=== PATIENT | male | born 1940 | race African-American/Black ===

== ENCOUNTER 2016-11-27 16:51 | Inpatient (IN) ==
[2016-11-27 17:56] LABS: Basophils # 0.1 K/mcL (0.0-0.2); Basophils % 0.8 %; Eosinophils # 0.2 K/mcL (0.0-0.6); Eosinophils % 2.9 %; Hematocrit 46.3 % (37.5-50.1); Hemoglobin 15.3 g/dL (12.9-16.9); Immature Granulocytes % 0.3 % (0-4); Lymphocytes % 30.2 %; Mean Corpuscular Hemoglobin 30.5 pg (28.0-33.3); Mean Corpuscular Volume 92.2 fL (83.0-100.0); Mean Platelet Volume 9.7 fL (9.4-12.4); Monocytes # 0.7 K/mcL (0.0-1.3); Monocytes % 10.5 %; Neutrophils # 3.7 K/mcL (1.6-8.9); Platelet Count 209 K/mcL (140-400); Red Blood Count 5.02 M/mcL (4.19-5.50); Red Cell Distribution Width 14.3 % (11.5-14.5); Segmented Neutrophils % 55.3 %
[2016-11-27 18:06] LABS: Calcium 9.4 mg/dL (8.6-10.8); Potassium 5.4 mEq/L (3.5-4.5)
[2016-11-27] MEDS ORDERED: Furosemide 40 MG/4 ML VIAL IVP ONE (20:50)
--- NOTE | 2016-11-27 23:59 | Emergency Department Note ---
Disposition Clinical Impression: CHF (congestive heart failure) Qualifiers: Congestive heart failure type: unspecified congestive heart failure type Congestive heart failure chronicity: unspecified congestive heart failure chronicity Qualified Code(s): I50.9 - Heart failure, unspecified Disposition: Admitted As Inpatient Condition: Good Referrals: Leon Ayon MD [Primary Care Provider] - General Adult HPI - General Chief complaint: ED Shortness of Breath/Dyspnea Stated complaint: VANDANA Time Seen by Provider: 11/27/16 20:13 Source: patient Limitations: no limitations Nursing Notes Reviewed: Yes Vital Signs Reviewed: Yes - History of Present Illness HPI Narrative: This is a 76-year-old male with a history of recent prostate surgery who presents with concern for dyspnea. He admits to orthopnea as well as dyspnea on exertion. He has rales on arrival and feels like his dyspnea worsens with movement. He does not a history of congestive heart failure. He is on Lasix. He admits that his urination has been not as powerful as normal. He has had decreased urinary output. He is taking his medications as prescribed. He does have a history of acute kidney injury. General: No acute distress HEENT: Pupils equal and reactive to light, extraoccular muscle movement is normal, TMS are clear bilaterally. Heart: RRR, No murmor rub or gallop Lungs: Rales bilaterally ABD: SNT, no focal areas or tenderness, no guarding or rebound tenderness. Extremities: No cyanosis, clubbing or edema Neuro: CN 2-12 in tact, no focal deficit. strength 5/5. Medical decision making 76-year-old male with history of heart failure presents with concern for dyspnea and orthopnea. He does have rales bilaterally. He has no hypoxia in the emergency department. His blood pressure is stable. He does have evidence of left bundle branch block on EKG. EKG shows left bundle branch block with ventricular rate of 79 bpm IN interval of 198 years duration of 141 QT of 394. There is evidence of left axis deviation. Additionally [address] segments are noted. This is a nonspecific EKG. One dose of IV Lasix 40 mg was provided. Chest x-ray is equivocal for pulmonary edema. Clinically he does have heart failure. Plan to admit for possible need for diuresis. Pain Scale: 0 - Related Data Home Medications Medication Instructions Recorded Confirmed Carvedilol [Coreg] 25 mg PO BID 08/12/15 11/27/16 Finasteride [Proscar] 5 mg PO DAILY 08/12/15 11/27/16 Furosemide [Lasix] 40 mg PO DAILY 08/12/15 11/27/16 Potassium Chloride [Klor-Con 10 meq PO BID 08/12/15 11/27/16 Sprinkle] Sacubitril/Valsartan [Entresto 24 1 each PO BID 11/08/16 11/27/16 mg-26 mg Tablet] Tramadol HCl [Ultram] 50 mg PO BID PRN 11/08/16 11/27/16 Mv-Mn/FA/Vit K/Lycop/Lut/Coq10 1 tab PO DAILY 11/21/16 11/27/16 [Daily Multivitamin Capsule] Aspirin Enteric Coated [Aspirin EC] 81 mg PO DAILY 11/27/16 11/27/16 Ergocalciferol (VITAMIN D2) 50,000 unit PO QWEEK 11/27/16 11/27/16 [Vitamin D2] Allergies Allergy/AdvReac Type Severity Reaction Status Date / Time cephalexin Allergy Hives Verified 11/21/16 09:25 All systems ED: reviewed and negative except as stated. Past Medical History - Past Medical History Medical history: Reports: cardiomyopathy, CHF, glaucoma, hypertension, other Surgical history: Reports: appendectomy, AICD Psychiatric history: Reports: no psych history - Social History Smoking Status: Never smoker Smokeless Tobacco Status: No Alcohol use: Reports: none Drug use: Reports: none Physical Exam - General Limitations: no limitations General appearance: alert, in no apparent distress Course Vital Signs Temperature 97.7 F 11/27/16 16:57 Pulse Rate 96 11/27/16 16:57 Respiratory Rate 18 11/27/16 16:57 Blood Pressure 130/75 11/27/16 16:57 O2 Sat by Pulse Oximetry 96 11/27/16 16:57 Temperature 97.7 F 11/27/16 16:57 Pulse Rate 77 11/27/16 23:25 Respiratory Rate 18 11/27/16 23:25 Blood Pressure 123/69 11/27/16 23:25 O2 Sat by Pulse Oximetry 96 11/27/16 23:25 Oxygen Delivery Oxygen Delivery Nasal Cannula Medical Decision Making - Lab Data Result diagrams: 11/27/16 17:47 11/27/16 17:47 Lab Results 11/27/16 11/27/16 11/27/16 Range/Units 17:47 17:47 17:47 WBC 6.7 (4.3-11.1) K/mcL RBC 5.02 (4.19-5.50) M/mcL Hgb 15.3 (12.9-16.9) g/dL Hct 46.3 (37.5-50.1) % MCV 92.2 (83.0-100.0) fL MCH 30.5 (28.0-33.3) pg MCHC 33.0 (31.6-35.5) g/dL RDW 14.3 (11.5-14.5) % Plt Count 209 (140-400) K/mcL MPV 9.7 (9.4-12.4) fL Immature Gran % 0.3 (0-4) % Seg Neutrophils % 55.3 % Lymphocytes % 30.2 % Monocytes % 10.5 % Eosinophils % 2.9 % Basophils % 0.8 % Neutrophils # 3.7 (1.6-8.9) K/mcL Lymphocytes # 2.0 (0.6-4.6) K/mcL Monocytes # 0.7 (0.0-1.3) K/mcL Eosinophils # 0.2 (0.0-0.6) K/mcL Basophils # 0.1 (0.0-0.2) K/mcL Sodium 137 (136-145) mEq/L Potassium 5.4 H (3.5-4.5) mEq/L Chloride 105 (98-109) mEq/L Carbon Dioxide 25 (19-29) mEq/L BUN 13 (8-26) mg/dL Creatinine 1.68 H (0.72-1.25) mg/dL Est GFR ( Amer) 49 L (> 60) Est GFR (Non-Af Amer) 40 L (> 60) BUN/Creatinine Ratio 8 (6-26) Glucose 135 H (70-99) mg/dL Calculated Osmolality 286 (280-300) Lactic Acid 1.6 (0.5-2.2) mmol/L Calcium 9.4 (8.6-10.8) mg/dL Troponin I (0-0.03) ng/mL B-Natriuretic Peptide (0-100) pg/mL 11/27/16 11/27/16 Range/Units 17:47 17:47 WBC (4.3-11.1) K/mcL RBC (4.19-5.50) M/mcL Hgb (12.9-16.9) g/dL Hct (37.5-50.1) % MCV (83.0-100.0) fL MCH (28.0-33.3) pg MCHC (31.6-35.5) g/dL RDW (11.5-14.5) % Plt Count (140-400) K/mcL MPV (9.4-12.4) fL Immature Gran % (0-4) % Seg Neutrophils % % Lymphocytes % % Monocytes % % Eosinophils % % Basophils % % Neutrophils # (1.6-8.9) K/mcL Lymphocytes # (0.6-4.6) K/mcL Monocytes # (0.0-1.3) K/mcL Eosinophils # (0.0-0.6) K/mcL Basophils # (0.0-0.2) K/mcL Sodium (136-145) mEq/L Potassium (3.5-4.5) mEq/L Chloride (98-109) mEq/L Carbon Dioxide (19-29) mEq/L BUN (8-26) mg/dL Creatinine (0.72-1.25) mg/dL Est GFR ( Amer) (> 60) Est GFR (Non-Af Amer) (> 60) BUN/Creatinine Ratio (6-26) Glucose (70-99) mg/dL Calculated Osmolality (280-300) Lactic Acid (0.5-2.2) mmol/L Calcium (8.6-10.8) mg/dL Troponin I 0.00 (0-0.03) ng/mL B-Natriuretic Peptide 1083 H (0-100) pg/mL
[2016-11-28] MEDS ORDERED: MOM Conc 10 ML UD.LIQ PO PRN (01:36)
[2016-11-28] MEDS ORDERED: *HR* HYDROcodone/Acet 5/325 mg TABLET PO PRN (01:36)
[2016-11-28] MEDS ORDERED: Naloxone 0.4 MG/ML INJ IVP PRN (01:36)
[2016-11-28] MEDS ORDERED: Ondansetron 4 MG/2 ML VIAL IVP PRN (01:36)
[2016-11-28] MEDS ORDERED: *HR* Morphine 2 MG/ML SYRINGE IVP PRN (01:36)
[2016-11-28] MEDS ORDERED: *HR* Promethazine 25 MG/ML VIAL IVP PRN (01:36)
[2016-11-28] MEDS ORDERED: Acetaminophen 325 MG TABLET PO PRN ×2 (01:36→15:48)
[2016-11-28] MEDS ORDERED: traMADol 50 MG TABLET PO PRN (01:40)
--- NOTE | 2016-11-28 03:50 | Internal Med History&Physical ---
Date of Encounter: 11/28/16 Time of Encounter: 01:45 Assessment and Plan (1) Acute systolic (congestive) heart failure Current visit: Yes Status: Acute Will admit the pt into Tele Reviewed his Cardiac cath from 11/05 showed mild triple vessel CAD, LVEF 10-15% Started him on IV Lasix 40mg BID Reviewed EKG will place him on Tele check serial troponin cont Coreg + Entresto Cont ASA Will consult Cardiology in AM - Since pt mentioned he does have issues with AICD , supposedly he scheduled to see Dr. King this week (2) Ischemic cardiomyopathy Current visit: Yes Status: Acute s/p AICD cont close monitoring (3) CKD (chronic kidney disease) stage 3, GFR 30-59 ml/min Current visit: Yes Status: Acute stable Cr avoid nephrotoxic meds (4) HTN (hypertension) Current visit: Yes Status: Acute stable BP cont home meds Qualifiers: Qualified Code(s): I10 - Essential (primary) hypertension (5) BPH (benign prostatic hyperplasia) Current visit: Yes Status: Acute recent urology procedure cont close monitoring since pt still c/o urinary retention will get bladder scan Qualifiers: Qualified Code(s): N40.1 - Benign prostatic hyperplasia with lower urinary tract symptoms; R39.16 - Straining to void; R39.16 - Straining to void (6) DVT prophylaxis Current visit: Yes Status: Acute on SQ Heparin Internal Medicine - H&P: HPI Chief complaint: Shortness of breath Admitted From: Emergency Dept Plans for Post Hospital Care: Home History of present illness: Mr. 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 He admits to orthopnea as well as dyspnea on exertion. He denied any CP.He also c/o still unable to void completely. Past Med Surg Social Fam HX - Past Medical History Medical history: cardiomyopathy, CHF, glaucoma, hypertension, other Psychiatric history: no psych history - Past Surgical History Surgical History: appendectomy, AICD - Social History Smoking Status: Never smoker Smokeless Tobacco Status: No Alcohol use: none Drug use: none - Family History Mother Cause of : Heart failure Internal Medicine - H&P: Meds Carvedilol [Coreg] 25 mg PO BID 08/12/15 [History] Finasteride [Proscar] 5 mg PO DAILY 08/12/15 [History] Furosemide [Lasix] 40 mg PO DAILY 08/12/15 [History] Potassium Chloride [Klor-Con Sprinkle] 10 meq PO BID 08/12/15 [History] Sacubitril/Valsartan [Entresto 24 mg-26 mg Tablet] 1 each PO BID 11/08/16 [ History] Tramadol HCl [Ultram] 50 mg PO BID PRN 11/08/16 [History] Mv-Mn/FA/Vit K/Lycop/Lut/Coq10 [Daily Multivitamin Capsule] 1 tab PO DAILY 11/21 [History] Aspirin Enteric Coated [Aspirin EC] 81 mg PO DAILY 11/27/16 [History] Ergocalciferol (VITAMIN D2) [Vitamin D2] 50,000 unit PO QWEEK 11/27/16 [History] 3 Allergy/AdvReac Type Severity Reaction Status Date / Time cephalexin Allergy Hives Verified 11/21/16 09:25 All Systems PM: A 10-system review of systems was performed and is negative for pertinent findings except as documented above in the HPI. Review of systems: All the systems are reviewed everything is benign except the systems and symptoms I mentioned in the history of present illness - Constitutional Vitals: Temp Pulse Resp BP Pulse Ox 97.6 F 88 18 123/78 98 11/28/16 00:31 11/28/16 00:31 11/28/16 00:31 11/28/16 00:31 11/28/16 00:31 General appearance: Present: A&O X 3, no acute distress, answers questions appropriately - Head Head exam: Present: atraumatic, normal inspection - Neck Neck exam general surgery: Present: supple - Respiratory Respiratory exam: Present: decreased breath sounds, rales (mild), wheezes (mild) . Absent: respiratory distress, rhonchi - Cardiovascular Cardiovascular exam: Present: gallop, RRR, +S1, +S2. Absent: systolic murmur - GI/Abdominal GI/Abdominal exam: Present: normal bowel sounds, soft. Absent: distended, rebound, rigid, tenderness - Extremities Exam Extremities exam: Present: pedal edema. Absent: calf tenderness, tenderness - Back Exam Back exam: Absent: CVA tenderness (L), CVA tenderness (R) - Neurological Exam Neurological exam: Present: alert, oriented X3 - Psychiatric Psychiatric exam: Present: normal affect, normal mood - Skin Skin exam: Present: intact. Absent: rash Internal Med - H&P Results - Labs CBC & Chem 7: 11/27/16 17:47 11/27/16 17:47
[2016-11-28 05:37] LABS: Basophils # 0.1 K/mcL (0.0-0.2); Basophils % 0.6 %; Eosinophils # 0.2 K/mcL (0.0-0.6); Eosinophils % 2.1 %; Hematocrit 43.6 % (37.5-50.1); Hemoglobin 14.7 g/dL (12.9-16.9); Immature Granulocytes % 0.2 % (0-4); Lymphocytes # 3.3 K/mcL (0.6-4.6); Lymphocytes % 34.6 %; Mean Corpuscular HGB Conc 33.7 g/dL (31.6-35.5); Mean Corpuscular Hemoglobin 30.6 pg (28.0-33.3); Mean Corpuscular Volume 90.8 fL (83.0-100.0); Mean Platelet Volume 10.5 fL (9.4-12.4); Monocytes # 1.1 K/mcL (0.0-1.3); Monocytes % 11.5 %; Neutrophils # 4.8 K/mcL (1.6-8.9); Platelet Count 200 K/mcL (140-400); Red Cell Distribution Width 14.1 % (11.5-14.5)
[2016-11-28 05:51] LABS: Chol/HDL Ratio 4.5 (0-4.9); Magnesium 1.9 mg/dL (1.6-2.6)
[2016-11-28 05:52] LABS: Potassium 3.7 mEq/L (3.5-4.5)
[2016-11-28] MEDS: *HR* Heparin 5,000 UNIT/ML VIAL SQ SCH ×2 (06:11→16:23)
--- NOTE | 2016-11-28 08:03 | Event Note ---
Date of Encounter: 11/28/16
[2016-11-28] MEDS ORDERED: SACUBITRIL/VALSARTAN 24/26 MG TABLET PO SCH (09:00)
--- NOTE | 2016-11-28 09:51 | Event Note ---
<Compa Murray - Last Filed: 11/28/16 13:01> Date of Encounter: 11/28/16 Time of Encounter: 13:01 I examined this patient and my medical decision-making was reviewed with the Resident Physician. I agree with the documented findings, disposition and treatment plan as described except to the extent set forth below. <Trenton Moseley - Last Filed: 11/28/16 14:45> Date of Encounter: 11/28/16 Patient reports worsening sob for the past week with acute worsening yesterday. After arrival at ER patient was found ot have b/l basilar rales. BNP was elevated. Patient was started on lasix IV for diuresis. He has hx of non-ischemic cardiomyopathy with LVEF of 15%. This morning patients states his sob has improved. He denies lightheadedness, CP ,palpitations, abdominal pain, nausea LE swelling, LE pain. General: pleaseant male without distress Heart: Regular rate and rhythm with no murmur Lungs: minor bibaslar rales Abdomen: Soft nontender, nondistended positive bowel sounds Skin: warm and dry Extremities: Absent pedal edema, Neuro: alert and oriented x3 Vascular: Pedal and radial pulses 2 out of 4 Acute on chronic systolic heart failure: Echo shows LVEF 15%. s/p ICD. Continue IV diuresis. Strict I/Os. Continue entresto. Coronary artery disease: [facility] 10/2016 showed non-obstructive CAD. Continue aspirin and statin beta isabel DVT prophylaxis: heparin SQ
--- NOTE | 2016-11-28 09:56 | Cardiology Consult Note ---
<Mirza Thakur - Last Filed: 11/28/16 09:47> Date of Encounter: 11/28/16 Time of Encounter: 09:00 Assessment and Plan (1) Acute systolic (congestive) heart failure Current Visit: Yes Status: Acute Known severe non-ischemic cardiomyoapthy and severe MR. Presents with acute on chronic CHF. TTE 10/2016- Severe LV enlargement with severe global LV dysfunction. EF 10-15% Mild RV dysfunction. Severe MR due to tethering of MV leaflets and incomplete coaptation.Moderate AI. Moderately severe TR. Severe pulmonary hypertension.Device leads present in R heart chambers. BNP 1214. No previous BNP to compare. CXR - no acute process. Given IV lasix with improvement. No significant I&O documented. He is down 3 KG since admission. Taking lasix 40 mg daily at home with PRN extra 40 mg with edema. Kidney function is stable. Continue IV lasix for at least 24 more hours. Strict I&O and daily weights. Scheduled for BiV IVC upgrade 12/07/16 for NYHA class III symptoms. Continue Entresto and carvedilol. I will discuss increasing entresto with Dr. Estrada. He is currently on starting dose. (2) HTN (hypertension) Current Visit: Yes Status: Acute B/p acceptable. Qualifiers: Hypertension type: essential hypertension Qualified Code(s): I10 - Essential (primary) hypertension (3) CAD (coronary artery disease) Current Visit: Yes Status: Acute [facility] 10/2016 showed mild non-obstructive CAD. There was a 50% stenosis in the pLCX artery. Minimal disease otherwise. Continue asa, statin, and bb. Qualifiers: Coronary Disease-Associated Artery/Lesion type: [place] artery [place] vs. transplanted heart: [place] heart Associated angina: without angina Qualified Code(s): I25.10 - Atherosclerotic heart disease of [place] coronary artery without angina pectoris Discussion w patient/family: The assessment and plan as outlined above was discussed with the patient and/or family members who expressed understanding and agreement. All questions were answered. Thank you for involving us in the care of your patient. Please call with any questions. History of Present Illness Consult date: 11/28/16 Requesting physician: Georgi Fregoso Consult reason: Acute CHF Chief complaint: Dyspnea History of present illness: Mr. Russo is a 76 year old male with a history on non-ischemic cardiomyopathy , CHF, severe mitral regurgitation, pulmonary hypertension, mild non- obstructive CAD on [facility] 10/2016, and BPH s/p recent TURP who presents with SOB for 24 hours. states that SOB occurs at rest and increased with activity. Denies weight gain, edema, or orthopnea. He presented to the hospital and was given IV lasix. He reports his symptoms have improved. He continues to have intermittent SOB. He is scheduled for ICD upgrade to bi-v ICD 12/07/[address] Kenn King. Echocardiogram recently ordered when his ICD battery was found to be depleted. His EF was found to be decreased at 10-15% from 30-35%. He underwent [facility] to evaluate for ischemic cause of reduced EF. He was found to have mild non- obstructive CAD. Past Med Surg Social Fam HX - Past Medical History Medical history: cardiomyopathy, CHF, coronary artery disease, glaucoma, hypertension, other Psychiatric history: no psych history - Past Surgical History Surgical History: appendectomy, AICD - Social History Smoking Status: Never smoker Smokeless Tobacco Status: No Alcohol use: none Drug use: none - Family History Mother Cause of : Heart failure Medications and Allergies Carvedilol [Coreg] 25 mg PO BID 08/12/15 [History] Finasteride [Proscar] 5 mg PO DAILY 08/12/15 [History] Furosemide [Lasix] 40 - 80 mg PO DAILY PRN 08/12/15 [History] Potassium Chloride [Klor-Con Sprinkle] 10 meq PO BID 08/12/15 [History] Sacubitril/Valsartan [Entresto 24 mg-26 mg Tablet] 1 each PO BID 11/08/16 [ History] Mv-Mn/FA/Vit K/Lycop/Lut/Coq10 [Daily Multivitamin Capsule] 1 tab PO DAILY 11/21 [History] Aspirin Enteric Coated [Aspirin EC] 81 mg PO DAILY 11/27/16 [History] Ergocalciferol (VITAMIN D2) [Vitamin D2] 50,000 unit PO QWEEK 11/27/16 [History] Lisinopril [Lisinopril] 2.5 mg PO BID 11/28/16 [History] 3 Allergy/AdvReac Type Severity Reaction Status Date / Time cephalexin Allergy Hives Verified 11/21/16 09:25 All Systems Review: A 10-system review of systems was performed and is negative for pertinent findings except as documented above in the HPI. Physical Examination Vital Signs, Last 4 Hours Temp Pulse Resp BP Pulse Ox 11/28/16 07:59 97.9 F 83 16 110/66 98 General: Conversant, No Apparent Distress HEENT: Atraumatic, Normocephaly, Mucus Membranes Moist Neck: No JVD, Normal carotid pulses Cardiac: Reg Rate and Rhythm, Normal S1 and S2, No Murmur Lungs: Normal Breath Sounds, No Wheeze, Rales, Rhonchi Neuro: Alert and responsive, No focal deficits noted Abdomen: Soft, Non-Tender Skin: No rashes noted on visualized skin Musculoskeletal: No Chest Wall Tenderness Extremities: No Clubbing, No Cyanosis, No Edema, Normal Pulses Results 11/28/16 03:58 11/28/16 03:58 Lab Results 11/28/16 11/28/16 11/28/16 03:58 03:58 03:58 WBC 9.4 Hgb 14.7 Hct 43.6 Plt Count 200 Sodium 139 Potassium 3.7 D Chloride 106 Carbon Dioxide 23 BUN 14 Creatinine 1.52 H Glucose 101 H Calcium 9.0 Magnesium 1.9 Troponin I 0.02 B-Natriuretic Peptide 11/28/16 03:58 WBC Hgb Hct Plt Count Sodium Potassium Chloride Carbon Dioxide BUN Creatinine Glucose Calcium Magnesium Troponin I B-Natriuretic Peptide 1214 H - Imaging and Cardiology Echo: report reviewed (Severe LV enlargement with severe global LV dysfunction. EF 10-15% Mild RV dysfunction. Severe MR due to tethering of MV leaflets and incomplete coaptation. Moderate AI. Moderately severe TR. Severe pulmonary hypertension. Device leads present in R heart chambers.) Consult Discharge Plan - Plan Referrals: Leon Ayon MD [Primary Care Provider] - 12/07/16 1:20 pm <Kay Estrada - Last Filed: 11/28/16 14:51> Date of Encounter: 11/28/16 - Attending Attestation I have personally performed a face to face evaluation on this patient. I have reviewed and agree with the care plan. History and Exam by me shows: EXAM: Alert, orientedx3 and conversant Mucus membranes moist No apparent JVD, no carotid bruit RRR, normal S1/S2, no murmur Normal breath sounds Abdomen soft, nontender, nondistended, normal bowel sounds No focal deficits No LE edema IMPRESSION: 1. Acute systolic heart failure: Known severe NICM presents with symptoms concerning for heart failure. Given IV lasix with noted improvement in symptoms and decrease in weight. Continue with IV diuresis. Will re-evaluate tomorrow. Scheduled for BiV ICD 12/07/16 - will continue to plan for outpatient procedure. Continue coreg and entresto. Assessment and Plan Discussion w patient/family: The assessment and plan as outlined above was discussed with the patient and/or family members who expressed understanding and agreement. All questions were answered. Thank you for involving us in the care of your patient. Please call with any questions. History of Present Illness History of present illness: Mr. Russo is a 76 year old male All Systems Review: A 10-system review of systems was performed and is negative for pertinent findings except as documented above in the HPI. Physical Examination Vital Signs, Last 4 Hours Temp Pulse Resp BP Pulse Ox 11/28/16 11:29 98.2 F 83 16 117/70 96 Results 11/28/16 03:58 11/28/16 03:58 Lab Results 11/28/16 11/28/16 11/28/16 03:58 03:58 03:58 WBC 9.4 Hgb 14.7 Hct 43.6 Plt Count 200 Sodium 139 Potassium 3.7 D Chloride 106 Carbon Dioxide 23 BUN 14 Creatinine 1.52 H Glucose 101 H Calcium 9.0 Magnesium 1.9 Troponin I 0.02 B-Natriuretic Peptide 11/28/16 11/28/16 03:58 10:15 WBC Hgb Hct Plt Count Sodium Potassium Chloride Carbon Dioxide BUN Creatinine Glucose Calcium Magnesium Troponin I 0.02 B-Natriuretic Peptide 1214 H
[2016-11-28] MEDS: Multivit/Ca/Min/Fe/FA 1 TAB TABLET PO SCH (11:44)
[2016-11-28] MEDS: Finasteride 5 MG TABLET PO SCH (11:44)
[2016-11-28] MEDS: Furosemide 40 MG/4 ML VIAL IVP SCH ×2 (11:44→16:23)
[2016-11-28] MEDS: Aspirin Enteric Coated 81 MG Tablet PO SCH (11:45)
--- NOTE | 2016-11-28 14:49 | Event Note ---
Date of Encounter: 11/28/16 Time of Encounter: 14:30 - Cardiology Event Note Discussed and reviewed with Dr. Kenn King and Dr. Estrada, recs to proceed with BiVICD upgrade as planned as an outpatient. Primary service aware.
--- NOTE | 2016-11-28 16:48 | Electrocardiograph Report ---
[place] [id number] Test Date: 2016-11-27 Pat Name: Mookie Russo Department: 102 Room: 2NE22 Gender: M Admissions Specialist: : [id number] Requested By: Lino Lozada Order Number: [id number] Reading MD: Mary King Measurements Intervals [place] Rate: 79 P: 45 NE: 198 QRS: -36 QRSD: 141 T: 105 QT: 394 QTc: 429 Interpretive Statements SINUS RHYTHM MARKED LEFT AXIS DEVIATION [QRS AXIS < -30] LEFT BUNDLE BRANCH BLOCK [120+ ms QRS DURATION, 80+ ms Q/S IN V1/V2, 85+ ms R IN I/aVL/V5/V6] Electronically Signed On 11-28-2016 16:47:04 EDT by Mary King
[2016-11-28] MEDS: SACUBITRIL/VALSARTAN 49/51 MG TABLET PO SCH (23:04)
[2016-11-29 05:01] LABS: Calcium 9.3 mg/dL (8.6-10.8); Potassium 4.1 mEq/L (3.5-4.5)
[2016-11-29] MEDS: *HR* Heparin 5,000 UNIT/ML VIAL SQ SCH (05:22)
--- NOTE | 2016-11-29 06:22 | Discharge Summary ---
<Trenton Moseley - Last Filed: 11/29/16 09:49> Date of Encounter: 11/29/16 Time of Encounter: 08:40 - Discharge Diagnosis (1) Acute systolic (congestive) heart failure Priority: Primary Status: Acute (2) Ischemic cardiomyopathy Priority: Secondary Status: Acute (3) CKD (chronic kidney disease) stage 3, GFR 30-59 ml/min Priority: Secondary Status: Acute (4) HTN (hypertension) Priority: Secondary Status: Acute Qualifiers: Hypertension type: essential hypertension Qualified Code(s): I10 - Essential (primary) hypertension (5) CAD (coronary artery disease) Priority: Secondary Status: Acute Qualifiers: Coronary Disease-Associated Artery/Lesion type: [place] artery [place] vs. transplanted heart: [place] heart Associated angina: without angina Qualified Code(s): I25.10 - Atherosclerotic heart disease of [place] coronary artery without angina pectoris (6) DVT prophylaxis Priority: Secondary Status: Acute - Discharge Medications Prescriptions: Sacubitril/Valsartan 49/51 mg [Entresto 49 mg-51 mg Tablet] 1 tab PO BID #60 tablet Home Medications: Carvedilol [Coreg] 25 mg PO BID 08/12/15 [History] Finasteride [Proscar] 5 mg PO DAILY 08/12/15 [History] Furosemide [Lasix] 40 - 80 mg PO DAILY PRN 08/12/15 [History] Potassium Chloride [Klor-Con Sprinkle] 10 meq PO BID 08/12/15 [History] Mv-Mn/FA/Vit K/Lycop/Lut/Coq10 [Daily Multivitamin Capsule] 1 tab PO DAILY 11/21 [History] Aspirin Enteric Coated [Aspirin EC] 81 mg PO DAILY 11/27/16 [History] Ergocalciferol (VITAMIN D2) [Vitamin D2] 50,000 unit PO QWEEK 11/27/16 [History] PrednisoLONE Acetate 1% Opth [PredFORTE 1%] 1 drop LEFT EYE DAILY 11/28/16 [ History] Sacubitril/Valsartan 49/51 mg [Entresto 49 mg-51 mg Tablet] 1 tab PO BID #60 tablet 11/29/16 [Rx] Allergies/Adverse Reactions: 3 Allergy/AdvReac Type Severity Reaction Status Date / Time cephalexin Allergy Hives Verified 11/21/16 09:25 Date of admission: 11/28/16 01:36 Primary care physician: Leon Ayon MD Consults: 11/28/16 06:37 Consult to Cardiology [CONS] Routine Comment: Consulting Provider: Cardiology Sonya Reason for Consult: acute CHF exacerbation Call Completed: Yes Discharging clinician: Trenton Moseley Anticipated date of discharge: 11/29/16 - Patient Status Disposition: Home, Self-Care Condition: Good Functional capacity at discharge: independent ambulation Overall status at discharge: patient is progressing back to baseline - Discharge Instructions Instructions: Heart Failure (DC) Follow Up With: Leon Ayon MD [Primary Care Provider] - 12/14/16 1:20 pm Kenn King MD [Partnered Physician] - 12/05/16 (KEEP APPT W/ DR. DRISCOLL ) Additional Instructions: Follow up with PCP and cardiology outaptient Please follow low salt and fluid restricted diet of 1500cc. Cardiology has increased your Entresto medication dosage. Please orange picker new prescription at your pharmacy. - Diet and Activity Activity: as per physical therapy, increase activity as tolerated Diet: low fat, low cholesterol, low salt diet, other (fluid restriction of 1500cc) Hospital course: Mr. Russo is a 76 year old male presents with cc of acute on set sob with hypoxia. Had b/l rales on lung exam and elevated BNP. Ptient required 2L O2 supplementation. Patient found to have acute on chronic systolic HF. He was started on lasix for diuresis. Patient echocardiogram has EF of 15%. 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 Patient had recent TURP procedure as well on 11/22/16 due to BPH and urinary retention which my have contributed to his fluid overload and acute heart failure. Patient was diured overnight and sob improved. This morning he is not requiring O2. He was ambulating independently without dyspnea and tolerating his diet. Patient's entresto dose was increased by cardiology. He was educated on low salt, fluid restricted diet. Patient will follow up outpatient with cardiology and pcp. Patient will get an BiV ICD upgrade on 12/07/16 outpatient as was scheduled before admission by cardiology. - Time Spent with Patient Total time spent providing and/or coordinating discharge services: - Constitutional Vitals: Temp Pulse Resp BP Pulse Ox 97.7 F 83 19 115/67 96 11/29/16 04:56 11/29/16 04:56 11/29/16 04:56 11/29/16 04:56 11/29/16 04:56 General appearance: Present: A&O X 3, no acute distress, answers questions appropriately - Head Head exam: Present: atraumatic, normocephalic - Eye Eye exam: Present: PERRL, conjuntiva pink, sclera anicteric - Neck Neck exam general surgery: Present: supple, trachea midline - Respiratory Respiratory exam: Present: CTAB. Absent: accessory muscle use, rales, rhonchi, wheezes - Cardiovascular Cardiovascular exam: Present: RRR, +S1, +S2. Absent: diastolic murmur, gallop, rubs, systolic murmur - GI/Abdominal GI/Abdominal exam: Present: normal bowel sounds, soft. Absent: distended, tenderness - Extremities Exam Extremities exam: Present: warm, radial pulses palpable and symmetrical. Absent : calf tenderness, cyanotic, pedal edema - Neurological Exam Neurological exam: Present: alert, oriented X3. Absent: facial droop, speech deficit - Skin Skin exam: Present: dry, intact <Terri,Compa P - Last Filed: 11/29/16 19:01> Date of Encounter: 11/29/16 Date of admission: 11/28/16 01:36 Primary care physician: Leon Ayon MD Consults: 11/28/16 06:37 Consult to Cardiology [CONS] Routine Comment: Consulting Provider: Cardiology [place] Reason for Consult: acute CHF exacerbation Call Completed: Yes Hospital course: Mr. Russo is a 76 year old male - Time Spent with Patient Total time spent providing and/or coordinating discharge services: - Constitutional Vitals: Temp Pulse Resp BP Pulse Ox 97.8 F 68 16 106/69 98 11/29/16 07:02 11/29/16 07:02 11/29/16 07:02 11/29/16 07:02 11/29/16 07:02 - Attending Attestation I examined this patient and my medical decision-making was reviewed with the Resident Physician. I agree with the documented findings, disposition and treatment plan as described except to the extent set forth below.
[2016-11-29 07:05] VITALS: BP 106/69
[2016-11-29] MEDS ORDERED: Furosemide 40 MG TABLET PO SCH (09:00)
[2016-11-29] MEDS: SACUBITRIL/VALSARTAN 49/51 MG TABLET PO SCH (09:20)
[2016-11-29] MEDS: Aspirin Enteric Coated 81 MG Tablet PO SCH (09:20)
[2016-11-29] MEDS: Finasteride 5 MG TABLET PO SCH (09:20)
[2016-11-29] MEDS: Multivit/Ca/Min/Fe/FA 1 TAB TABLET PO SCH (09:20)
--- NOTE | 2016-11-29 09:32 | Cardiology Progress Note ---
Date of Encounter: 11/29/16 Time of Encounter: 09:28 Assessment and Plan (1) Acute systolic (congestive) heart failure Current Visit: Yes Status: Acute Known severe non-ischemic cardiomyoapthy and severe MR. Presents with acute on chronic CHF. TTE 10/2016- Severe LV enlargement with severe global LV dysfunction. EF 10-15% Mild RV dysfunction. Severe MR due to tethering of MV leaflets and incomplete coaptation.Moderate AI. Moderately severe TR. Severe pulmonary hypertension.Device leads present in R heart chambers. [facility] 10/2016- C showed mild-moderate non-obstructive CAD. BNP 1214. No previous BNP to compare. CXR - no acute process. Given IV lasix with improvement. Net negative 2L. He is down 3 KG since admission. Taking lasix 40 mg daily at home with PRN extra 40 mg with edema. Continue home dose of lasix. Admits to high sodium intake. Low sodium diet reviewed and patient agrees to decrease sodium intake. Mild increase in creatinine. Continue IV lasix for at least 24 more hours. Strict I&O and daily weights. Scheduled for BiV IVC upgrade 12/07/16 for NYHA class III symptoms. Continue Entresto and carvedilol. Entresto increased yesterday. Increase in creatinine, may be secondary to diuretic. Decrease back to original dose and re- evaluate in out pt setting. Cardiology signing off. Call with questions. Out-pt f/u will be made in 1-2 weeks for CHF f/u. (2) HTN (hypertension) Current Visit: Yes Status: Acute B/p acceptable. Qualifiers: Hypertension type: essential hypertension Qualified Code(s): I10 - Essential (primary) hypertension (3) CAD (coronary artery disease) Current Visit: Yes Status: Acute [facility] 10/2016 showed mild non-obstructive CAD. There was a 50% stenosis in the pLCX artery. Minimal disease otherwise. Continue asa, statin, and bb. Qualifiers: Coronary Disease-Associated Artery/Lesion type: [place] artery [place] vs. transplanted heart: [place] heart Associated angina: without angina Qualified Code(s): I25.10 - Atherosclerotic heart disease of [place] coronary artery without angina pectoris Discussion w patient/family: The assessment and plan as outlined above was discussed with the patient and/or family members who expressed understanding and agreement. All questions were answered. Thank you for involving us in the care of your patient. Please call with any questions. Subjective Principal diagnosis: CHF Interval history: mr. Russo is resting in bed comfortably. Denies recurrent dyspnea. Objective Vital Signs, Last 4 Hours Temp Pulse Resp BP Pulse Ox 11/29/16 07:02 97.8 F 68 16 106/69 98 General: Conversant, No Apparent Distress HEENT: Atraumatic, Normocephaly, Mucus Membranes Moist Neck: No JVD, Normal carotid pulses Cardiac: Reg Rate and Rhythm, Normal S1 and S2, No Murmur Lungs: Normal Breath Sounds, No Wheeze, Rales, Rhonchi Neuro: Alert and responsive, No focal deficits noted Abdomen: Soft, Non-Tender Skin: No rashes noted on visualized skin Musculoskeletal: No Chest Wall Tenderness Extremities: No Clubbing, No Cyanosis, No Edema, Normal Pulses Results 11/28/16 03:58 11/29/16 04:25 Lab Results 11/28/16 11/29/16 10:15 04:25 Sodium 141 Potassium 4.1 Chloride 104 Carbon Dioxide 29 BUN 18 Creatinine 1.71 H Glucose 129 H Calcium 9.3 Troponin I 0.02 Consult Discharge Plan - Plan Additional Instructions: Follow up with PCP and cardiology outaptient Please follow low salt and fluid restricted diet of 1500cc. Cardiology has increased your Entresto medication dosage. 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 Referrals: Leon Ayon MD [Primary Care Provider] - 12/07/16 1:20 pm Prescriptions: Sacubitril/Valsartan 49/51 mg [Entresto 49 mg-51 mg Tablet] 1 tab PO BID #60 tablet
[2016-11-29] MEDS ORDERED: FLUARIX QUAD 2017-18 36MOS UP/PF 0.5 ML SYRINGE IM ONE (10:37)
[2016-11-29] MEDS ORDERED: SACUBITRIL/VALSARTAN 24/26 MG TABLET PO SCH (21:00)
== END 2016-11-29 11:25 | disposition home or self-care (01) | DRG 291 ==
LOC: 2NENU 16:51 → EMEROO 16:51 → 2NENU 11-28 00:18 → SUATTDRO 11-28 01:36
PROVIDERS: ADMIT Family Medicine; ATTEND Internal Medicine

== ENCOUNTER 2018-01-22 13:39 | Observation (INO) ==
--- NOTE | 2018-01-22 14:17 | Emergency Department Note ---
Disposition Clinical Impression: CHF (congestive heart failure) Qualifiers: Heart failure type: unspecified Heart failure chronicity: acute on chronic Qualified Code(s): I50.9 - Heart failure, unspecified Disposition: Admitted As Inpatient Condition: Good Referrals: Leon Ayon MD [Primary Care Provider] - Forms: ED Satisfaction Letter Time of Disposition: 16:34 General Adult HPI - General Chief complaint: ED Shortness of Breath/Dyspnea Stated complaint: VANDANA Time Seen by Provider: 01/22/18 13:52 Source: patient Limitations: no limitations - History of Present Illness HPI Narrative: This is a 77-year-old male who comes to emergency department because of shortness of breath. He states it has been worsening over the last 2 weeks. He states that he becomes especially short of breath when he lies down to sleep. He also reports increased dyspnea on exertion. Pain Scale: 1 - Related Data Home Medications Medication Instructions Recorded Confirmed Carvedilol [Coreg] 25 mg PO BID 08/12/15 12/07/16 Finasteride [Proscar] 5 mg PO DAILY 08/12/15 12/07/16 Furosemide [Lasix] 40 - 80 mg PO DAILY PRN 08/12/15 12/07/16 Potassium Chloride [Klor-Con 10 meq PO BID 08/12/15 12/07/16 Sprinkle] Mv-Mn/FA/Vit K/Lycop/Lut/Coq10 1 tab PO DAILY 11/21/16 12/07/16 [Daily Multivitamin Capsule] Aspirin Enteric Coated [Aspirin EC] 81 mg PO DAILY 11/27/16 11/28/16 Ergocalciferol (VITAMIN D2) 50,000 unit PO QWEEK 11/27/16 12/07/16 [Vitamin D2] PrednisoLONE Acetate 1% Opth 1 drop LEFT EYE DAILY 11/28/16 12/07/16 [PredFORTE 1%] Previous Rx's Medication Instructions Recorded Sacubitril/Valsartan 49/51 mg 1 tab PO BID #60 tablet 11/29/16 [Entresto 49 mg-51 mg Tablet] Allergies Allergy/AdvReac Type Severity Reaction Status Date / Time cephalexin Allergy Hives Verified 11/21/16 09:25 All systems ED: reviewed and negative except as stated. Cardiovascular: Reports: dyspnea on exertion, orthopnea Respiratory: Reports: dyspnea Past Medical History - Past Medical History Medical history: Reports: cardiomyopathy, CHF, coronary artery disease, glaucoma, hypertension, other Surgical history: Reports: appendectomy, AICD Psychiatric history: Reports: no psych history - Social History Smoking Status: Former smoker Smokeless Tobacco Status: No Alcohol use: Reports: none Drug use: Reports: none Physical Exam - General Limitations: no limitations General appearance: alert, in no apparent distress - Head Head exam: atraumatic, normocephalic, normal inspection - Eye Eye exam: Present: normal appearance, PERRL, EOMI - Chest Chest inspection: Present: normal inspection, symmetric chest wall rise - Respiratory Respiratory exam: Present: other (Sounds are clear in the apices and severely diminished in the bases) - Cardiovascular Cardiovascular exam: Present: regular rate, normal rhythm, normal heart sounds - Abdominal Exam Abdominal exam: Present: soft, Non-Tender. Absent: tenderness, distention, guarding, rebound, rigidity - Extremities Exam Extremities exam: Present: normal inspection, full ROM. Absent: tenderness, pedal edema - Neurological Exam Neurological exam: Present: alert, oriented X3 - Psychiatric Psychiatric exam: Present: normal affect, normal mood - Skin Skin exam: Present: warm, dry, intact, normal color Course Course Narrative: This is a 77-year-old male with in history of present illness and exam concerning for CHF exacerbation Vital Signs Temperature 98.1 F 01/22/18 13:43 Pulse Rate 90 01/22/18 13:43 Respiratory Rate 20 01/22/18 13:43 Blood Pressure 124/78 01/22/18 13:43 O2 Sat by Pulse Oximetry 97 01/22/18 13:43 Temperature 98.1 F 01/22/18 13:43 Pulse Rate 90 01/22/18 13:43 Respiratory Rate 20 01/22/18 13:43 Blood Pressure 124/78 01/22/18 13:43 O2 Sat by Pulse Oximetry 97 01/22/18 13:43 Oxygen Delivery Oxygen Delivery Room Air Medical Decision Making - MDM Narrative Medical decision making narrative: This is a 77-year-old male with a CHF exacerbation. He was given 60 mg of furosemide, and I discussed his case with the on-call hospitalist, who accepted him for admission - Lab Data Lab results reviewed: Yes I reviewed the patient's lab results. Lab results narrative: CBC was unremarkable BMP was unremarkable Lactate was 1.4 Troponin was low Result diagrams: 01/22/18 14:01 01/22/18 14:01 Lab Results 01/22/18 01/22/18 01/22/18 Range/Units 14: 14:01 14:11 WBC 7.7 (4.3-11.1) K/mcL RBC 4.79 (4.19-5.50) M/mcL Hgb 15.2 (12.9-16.9) g/dL Hct 45.4 (37.5-50.1) % MCV 94.8 (83.0-100.0) fL MCH 31.7 (28.0-33.3) pg MCHC 33.5 (31.6-35.5) g/dL RDW 13.6 (11.5-14.5) % Plt Count 192 (140-400) K/mcL MPV 10.4 (9.4-12.4) fL Immature Gran % 0.4 (0-4) % Seg Neutrophils % 66.1 % Lymphocytes % 21.3 % Monocytes % 10.6 % Eosinophils % 1.3 % Basophils % 0.3 % Neutrophils # 5.1 (1.6-8.9) K/mcL Lymphocytes # 1.7 (0.6-4.6) K/mcL Monocytes # 0.8 (0.0-1.3) K/mcL Eosinophils # 0.1 (0.0-0.6) K/mcL Basophils # 0.0 (0.0-0.2) K/mcL Sodium 138 (136-145) mEq/L Potassium 4.5 (3.5-5.1) mEq/L Chloride 105 (98-107) mEq/L Carbon Dioxide 22 L (23-29) mEq/L BUN 18 (8-23) mg/dL Creatinine 1.60 H (0.70-1.30) mg/dL Est GFR ( Amer) 51 L (> 60) Est GFR (Non-Af Amer) 42 L (> 60) BUN/Creatinine Ratio 11 (6-26) Glucose 131 H (70-105) mg/dL Calculated Osmolality 290 (280-300) Lactic Acid 1.4 (0.5-2.2) mmol/L Calcium 9.1 (8.6-10.3) mg/dL Troponin I < 0.03 (< 0.04) ng/mL - Radiology Data Radiology results reviewed: Yes I reviewed the patient's radiology results. Chest x-ray was consistent with mild pulmonary edema - EKG Data EKG #1 EKG attestation: Yes I reviewed and interpreted this EKG. EKG results narrative: ECG shows paced rhythm at [address] with [address] unusual ST or T-wave changes. 2 [place] beats Critical Care Time Critical Care Time: No
[2018-01-22 14:29] LABS: Basophils % 0.3 %; Eosinophils # 0.1 K/mcL (0.0-0.6); Eosinophils % 1.3 %; Hematocrit 45.4 % (37.5-50.1); Hemoglobin 15.2 g/dL (12.9-16.9); Immature Granulocytes % 0.4 % (0-4); Lymphocytes # 1.7 K/mcL (0.6-4.6); Lymphocytes % 21.3 %; Mean Corpuscular HGB Conc 33.5 g/dL (31.6-35.5); Mean Corpuscular Hemoglobin 31.7 pg (28.0-33.3); Mean Corpuscular Volume 94.8 fL (83.0-100.0); Mean Platelet Volume 10.4 fL (9.4-12.4); Monocytes # 0.8 K/mcL (0.0-1.3); Monocytes % 10.6 %; Neutrophils # 5.1 K/mcL (1.6-8.9); Platelet Count 192 K/mcL (140-400); Red Blood Count 4.79 M/mcL (4.19-5.50); Red Cell Distribution Width 13.6 % (11.5-14.5); Segmented Neutrophils % 66.1 %
[2018-01-22 14:50] LABS: Troponin I < 0.03 ng/mL (< 0.04)
[2018-01-22 15:02] LABS: BUN/Creatinine Ratio 11 (6-26); Blood Urea Nitrogen 18 mg/dL (8-23); Calcium 9.1 mg/dL (8.6-10.3); Carbon Dioxide 22 mEq/L (23-29); Chloride 105 mEq/L (98-107); Glucose 131 mg/dL (70-105); Osmolality,Calculated 290 (280-300); Potassium 4.5 mEq/L (3.5-5.1); Sodium 138 mEq/L (136-145); eGFR For Non-African Americans 42 (> 60)
[2018-01-22] MEDS ORDERED: Furosemide 40 MG/4 ML VIAL IVP ONE (15:30)
[2018-01-22] MEDS ORDERED: Simethicone 80 MG TAB.CHEW PO PRN (21:40)
--- NOTE | 2018-01-23 00:01 | Internal Med History&Physical ---
Date of Encounter: 01/22/18 Time of Encounter: 19:00 Internal Medicine - H&P: HPI Chief complaint: Dyspnea Admitted From: Home Plans for Post Hospital Care: Home History of present illness: The patient is a 77-year-old male with severe dilated cardiomyopathy. His cardiac catheterization from October 2016 showed ejection fraction of 15%. He had an ICD inserted in November 2016. The patient has had progressing dyspnea for the last 2 weeks. It got significantly worse in the last 24 hours; had difficulty sleeping last night (nocturnal dyspnea). Denies coughing and wheezing. Denies fever and chills. It was about 2 weeks ago when he stopped taking Lasix; substituted it with Entresto. He took only 1 dose of Lasix yesterday. The patient does not follow fluid restriction. 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 He does have chronic left shoulder pain. He has had some low back pain with radiation to his right buttock for the last 2 weeks. He suffers from chronic low back pain. PAST MEDICAL HX: Severe dilated cardiomyopathy with ejection fraction of about 15%. Hypertensive renal disease with CKD stage III. BPH without urinary tract obstruction. PAST FAMILY HX: Positive for HTN. PAST SOCIAL HX: See below.. REVIEW OF SYSTEMS: All 14 organ systems were reviewed by me with the patient. Positive and pertinent negative findings are listed above. The rest of organ systems is negative. PHYSICAL EXAM: Skin: Free of rash and discoloration. Eyes: Sclera is white. There is no discharge from eyes. ENMT: Oral/pharyngeal mucosa is normal in appearance. There is no discharge from nose or ears. Respiratory: Normal breath sounds with no crackles and wheezes bilaterally. CV: Heart is regular with no gallop or murmur. He has mild swelling around his ankles. GI: Abdomen is flat and soft with no palpable mass or visceromegaly. : There is no tenderness in patient's flanks bilaterally. Neuro exam: He has good strength in upper and lower extremities. He has normal eye movements. Psychiatric: He has normal affect. His thought process is appropriate to the s ituation. ADDITIONAL DATA: Chest x-ray shows mild pulmonary vascular congestion. CBC is normal. BMP shows normal electrolytes. It shows creatinine of 1.60 with GFR of 42. He had creatinine of 1.54 in November 2016. A/P: Acute on chronic systolic heart failure in a patient with severe dilated ca rdiomyopathy. He feels better after getting 60 mg of IV Lasix. We will continue IV Lasix at 40 mg every morning. I am going to restart his Entresto, when switching him to oral Lasix. To continue Coreg at 25 mg by mouth twice a day. Hypertensive renal disease with CKD stage III. He will continue Coreg. BPH without urinary tract obstruction. He will continue Proscar. Disposition: I anticipate his discharge in 2-3 days. Past Med Surg Social Fam HX - Past Medical History Medical history: cardiomyopathy, CHF, coronary artery disease, glaucoma, hypertension, other Additional medical history: BPH Psychiatric history: no psych history - Past Surgical History Surgical History: appendectomy, AICD Additional surgical history: Lasik left eye, prostate needle biopsy - Social History Smoking Status: Former smoker Smokeless Tobacco Status: No Alcohol use: none Drug use: none - Family History Mother Living Status: Hx Family Cardiac Disorders: Yes Internal Medicine - H&P: Meds Carvedilol [Coreg] 25 mg PO BID 08/12/15 [History] Furosemide [Lasix] 40 - 80 mg PO DAILY PRN 08/12/15 [History] Ergocalciferol (VITAMIN D2) [Vitamin D2] 50,000 unit PO MO 11/27/16 [History] Dorzolamide/Timolol/Pf [Dorzolamide-Timolol 2%-0.5%] 1 drop LEFT EYE Q12H 01/22/18 [History] Latanoprost [Xalatan] 1 drop LEFT EYE QPM 01/22/18 [History] Sacubitril/Valsartan 97/103 mg [Entresto 97 mg-103 mg Tablet] 1 tab PO BID 01/22/18 [History] Tramadol HCl [Ultram] 50 mg PO TID PRN 01/22/18 [History] Allergy/AdvReac Type Severity Reaction Status Date / Time cephalexin Allergy Hives Verified 11/21/16 09:25 All Systems PM: xx - Constitutional Vitals: Temp Pulse Resp BP Pulse Ox 98.5 F 83 16 101/63 96 01/22/18 22:54 01/22/18 22:54 01/22/18 22:54 01/22/18 22:54 01/22/18 22:54 General appearance: Present: A&O X 3, answers questions appropriately Exam: xx Internal Med - H&P Results - Labs CBC & Chem 7: 01/22/18 14:01 01/22/18 14:01 Labs: Short CBC 01/22/18 Range/Units 14:01 WBC 7.7 (4.3-11.1) K/mcL Hgb 15.2 (12.9-16.9) g/dL Hct 45.4 (37.5-50.1) % Plt Count 192 (140-400) K/mcL Neutrophils # 5.1 (1.6-8.9) K/mcL BMP 01/22/18 14:01 Sodium 138 Potassium 4.5 Chloride 105 Carbon Dioxide 22 L BUN 18 Creatinine 1.60 H Glucose 131 H Calcium 9.1 Cardiac Enzymes 01/22/18 Range/Units 14:01 Troponin I < 0.03 (< 0.04) ng/mL - Impressions ITS Impressions Chest X-Ray 01/22/18 14:01 IMPRESSION: Findings suggesting mild pulmonary vascular congestion. Other etiologies including atypical pneumonitis are not excluded. No focal airspace consolidation. D/ / Francisco Burden / Francisco Burden Interpreting Provider: Francisco Burden - Assessment and plan (1) Acute on chronic systolic (congestive) heart failure Current Visit: Yes Status: Acute (2) Dilated cardiomyopathy Current Visit: Yes Status: Chronic (3) S/P ICD (internal cardiac defibrillator) procedure Current Visit: No Status: Chronic (4) Hypertensive renal disease with renal failure Current Visit: Yes Status: Chronic (5) BPH without urinary obstruction Current Visit: Yes Status: Chronic - Time Spent With Patient Total time spent is greater than 50% in coordination of care (as documented) at patient's floor/unit and/or counseling patient: 25 - 35 minutes - VTE Deep Vein Thrombosis/Pulmonary Embolism Present on Admission: No
[2018-01-23] MEDS ORDERED: Furosemide 40 MG/4 ML VIAL IVP SCH (09:00)
--- NOTE | 2018-01-23 10:39 | Electrocardiograph Report ---
[place] [id number] Test Date: 2018-01-22 Pat Name: Mookie Russo Department: EXAM8 Room: 3B Gender: M Relocation Manager: : [id number] Requested By: Jerardo Underwood Order Number: [id number] Reading MD: Donnie Ramos Measurements Intervals [place] Rate: 88 P: 58 UT: 191 QRS: -22 QRSD: 120 T: 119 QT: 408 QTc: 494 Interpretive Statements Atrial-sensed ventricular-paced complexes, PVCs or PAC with aberrent conduction Electronically Signed On 01-23-2018 10:38:14 EST by Donnie Ramos
[2018-01-23] MEDS ORDERED: Melatonin 3 MG TABLET PO PRN (22:37)
--- NOTE | 2018-01-23 23:40 | Internal Med Progress Note ---
Hospitalist Progress Note - Encounter Date of Encounter: 01/23/18 Time of Encounter: 19:00 - Subjective Interval History: SUBJECTIVE: The patient feels good. He was able to sleep last night without difficulty breathing. Denies coughing and wheezing. Denies abdominal pain, nausea and vomiting. He made a lot of urine today morning; after 40 mg of IV Lasix. OBJECTIVE: Skin: Free of rash and discoloration. ENMT: Oral/pharyngeal mucosa is normal in appearance. Eyes: Sclera is white. There is no discharge from eyes. Respiratory: Normal breath sounds; no crackles or wheezes. CV: Heart is regular; no gallop or murmur. GI: Abdomen is soft and not tender. There is no palpable mass or visceromegaly. Neuro: There is no focal deficits. ADDITIONAL DATA: I am ordering chest x-ray, BMP and magnesium for tomorrow morning. ASSESSMENT AND PLAN: Acute on chronic systolic heart failure in patient with dilated cardiomyopathy (ejection fraction of 15%). I will switch him from IV to oral Lasix from tomorrow morning. His Entresto will be restarted at discharge. The patient has an ICD inserted. Hypertensive renal disease with renal failure. We need to check his BMP after giving him intense diuresis. BPH without urinary tract obstruction. He is on Proscar. DISPOSITION: Tentative discharge is tomorrow. - Exam Vitals: Temp Pulse Resp BP Pulse Ox 98.7 F 67 16 95/61 93 01/23/18 22:47 01/23/18 22:47 01/23/18 22:47 01/23/18 22:47 01/23/18 22:47 Exam: xx - Assessment and Plan (1) Acute on chronic systolic (congestive) heart failure Current Visit: Yes Status: Acute (2) Dilated cardiomyopathy Current Visit: Yes Status: Chronic (3) S/P ICD (internal cardiac defibrillator) procedure Current Visit: No Status: Chronic (4) Hypertensive renal disease with renal failure Current Visit: Yes Status: Chronic (5) BPH without urinary obstruction Current Visit: Yes Status: Chronic - Time Spent with Patient Total time spent is greater than 50% in coordination of care (as documented) at patient's floor/unit and/or counseling patient: 25 - 35 minutes Plan of Care Discussed with: patient Internal Medicine: Result - Labs CBC & Chem 7: 01/22/18 14:01 01/22/18 14:01 - VTE Deep Vein Thrombosis/Pulmonary Embolism Present on Admission: No Consult Discharge Plan - Plan Referrals: Leon Ayon MD [Primary Care Provider] -
[2018-01-24 05:09] LABS: Calcium 8.6 mg/dL (8.6-10.3); Magnesium 1.9 mg/dL (1.6-2.6); Potassium 3.4 mEq/L (3.5-5.1)
[2018-01-24 07:39] VITALS: BP 115/73
[2018-01-24] MEDS ORDERED: Furosemide 40 MG TABLET PO SCH (09:00)
--- NOTE | 2018-01-24 10:02 | Discharge Summary ---
Orders not resulted at time of discharge: Pending orders 01/24/18 07:00 CXR, PA/Lateral [XR chest 2V] [XR] Routine Date of Encounter: 01/24/18 Time of Encounter: 09:57 - Discharge Diagnosis (1) Acute on chronic systolic (congestive) heart failure Priority: Primary Status: Acute (2) Dilated cardiomyopathy Priority: Primary Status: Chronic (3) S/P ICD (internal cardiac defibrillator) procedure Priority: Primary Status: Chronic (4) Hypertensive renal disease with renal failure Priority: Secondary Status: Chronic (5) BPH without urinary obstruction Priority: Secondary Status: Chronic Hospital course: HOSPITAL COURSE: The patient is a 77-year-old male with a severe dilated cardiomyopathy; ejection fraction of 15% (measured in 2017). He does have ICD inserted. We admitted him with progressing dyspnea developing in the last 2 weeks preceding this admission. It started after he stopped taking Lasix, when sta rting an Entresto. He could not sleep in the night preceding this hospitalization. We found him to have pulmonary congestion. He has underlying hypertensive renal disease; creatinine was 1.60 at admission. We offered him IV Lasix. They are asking for fluid restriction of 1500 mL per day. I decided not to give him Entresto, when giving him intense diuresis. He got better. I switched him to oral Lasix. He will start taking Entresto after the discharge. There is no coughing or wheezing during this hospitalization. His temperature chart was normal. CONDITION AT DISCHARGE: He feels good. He does not have resting dyspnea; on room air oxygen (pulse ox of 98%). Skin: Free of rash and discoloration. Respiratory: Normal breath sounds with no crackles and wheezes bilaterally. CV: Heart is regular with no gallop or murmur. GI: Abdomen is flat and soft with no palpable mass or visceromegaly. Neuro exam: There is no focal deficits. Normal speech, swallowing and gait. SEE DISCHARGE ORDERS/MEDICATIONS.. Discharge discussed with: patient - Time Spent with Patient Total time spent providing and/or coordinating discharge services: Greater than 30 minutes (40 minutes..) - Discharge Medications Prescriptions: Potassium Chloride [Klor-Con 10] 10 meq PO BID #60 tablet.er Home Medications: Carvedilol [Coreg] 25 mg PO BID 08/12/15 [History] Ergocalciferol (VITAMIN D2) [Vitamin D2] 50,000 unit PO MO 11/27/16 [History] Dorzolamide/Timolol/Pf [Dorzolamide-Timolol 2%-0.5%] 1 drop LEFT EYE Q12H 01/22/18 [History] Latanoprost [Xalatan] 1 drop LEFT EYE QPM 01/22/18 [History] Sacubitril/Valsartan 97/103 mg [Entresto 97 mg-103 mg Tablet] 1 tab PO BID 01/22/18 [History] Furosemide [Lasix] 40 mg PO QAM #0 01/24/18 [Rx] Potassium Chloride [Klor-Con 10] 10 meq PO BID #60 tablet.er 01/24/18 [Rx] Tramadol HCl [Ultram] 50 mg PO Q6H PRN #30 01/24/18 [Rx] Allergies/Adverse Reactions: Allergy/AdvReac Type Severity Reaction Status Date / Time cephalexin Allergy Hives Verified 11/21/16 09:25 Date of admission: 01/22/18 16:47 Primary care physician: Leon Ayon MD Discharging clinician: Manjinder Mohr Anticipated date of discharge: 01/24/18 - Constitutional Vitals: Temp Pulse Resp BP Pulse Ox 98.5 F 80 17 115/73 98 01/24/18 07:34 01/24/18 07:34 01/24/18 07:34 01/24/18 07:34 01/24/18 07:34 General appearance: Present: A&O X 3, answers questions appropriately Exam: xx - Patient Status Disposition: Home, Self-Care Condition: Fair - Discharge Instructions Instructions: Heart Failure (DC), Heart Failure (GEN), Seasoning Without Salt (DC), Seasoning Without Salt (GEN), Low Sodium Diet (DC), Low Sodium Diet (GEN), Fluid Restriction (DC), Fluid Restriction (GEN) Follow Up With: Leon Ayon MD [Primary Care Provider] - (Your appointment has been requested. Our offices will call you with a time and date.) Additional Instructions: BMP -- in 1 week.. Follow-up with PCP -- in 10-14 days.. - Diet and Activity Activity: resume usual activities as tolerated Diet: low salt diet (FLUID RESTRICTION OF 4401-8086 ML PER DAY..) - VTE Reasons for not Prescribing Prophylaxis: Treatment not Indicated - Low risk for VTE Deep Vein Thrombosis/Pulmonary Embolism Present on Admission: No
== END 2018-01-24 14:59 | disposition home or self-care (01) ==
LOC: 3BNU 13:39 → EMEROOARM 13:39 → SUATTDRO 16:47 → 3BNU 17:39
PROVIDERS: ADMIT Internal Medicine; ATTEND Internal Medicine

== ENCOUNTER 2018-06-17 15:30 | Observation (INO) ==
--- NOTE | 2018-06-17 16:38 | Emergency Department Note ---
Disposition Clinical Impression: Near syncope, CKD (chronic kidney disease) stage 3, GFR 30-59 ml/min Hypotension Qualifiers: Hypotension type: orthostatic hypotension Qualified Code(s): I95.1 - Orthostatic hypotension Disposition: Admitted As Inpatient Condition: Fair Referrals: Leon Ayon MD [Primary Care Provider] - Forms: ED Satisfaction Letter General Adult HPI - General Chief complaint: ED Weakness Stated complaint: weakness/hypotension Time Seen by Provider: 06/17/18 16:16 Source: patient Limitations: no limitations Nursing Notes Reviewed: Yes Vital Signs Reviewed: Yes - History of Present Illness Pain Scale: 0 - Related Data Home Medications Medication Instructions Recorded Confirmed Ergocalciferol (VITAMIN D2) 50,000 unit PO MO 11/27/16 04/29/18 [Vitamin D2] Dorzolamide/Timolol/Pf 1 drop LEFT EYE Q12H 01/22/18 04/29/18 [Dorzolamide-Timolol 2%-0.5%] Latanoprost [Xalatan] 1 drop LEFT EYE QPM 01/22/18 04/29/18 Aspirin [Lo-Dose Aspirin EC] 81 mg PO DAILY 04/29/18 04/29/18 Previous Rx's Medication Instructions Recorded Potassium Chloride [Klor-Con 10] 10 meq PO BID #60 tablet.er 01/24/18 Tramadol HCl [Ultram] 50 mg PO Q6H PRN #30 01/24/18 Atorvastatin [Lipitor] 10 mg PO HS #30 tablet 04/30/18 Carvedilol [Coreg] 12.5 mg PO BID #0 04/30/18 Furosemide [Lasix] 20 mg PO QAM #0 04/30/18 Allergies Allergy/AdvReac Type Severity Reaction Status Date / Time cephalexin Allergy Hives Verified 11/21/16 09:25 Past Medical History - Past Medical History Medical history: Reports: cardiomyopathy, CHF, coronary artery disease, glaucoma, hypertension, other Surgical history: Reports: appendectomy, prostatectomy, AICD Psychiatric history: Reports: no psych history - Social History Smoking Status: Former smoker Smokeless Tobacco Status: No Alcohol use: Reports: none Drug use: Reports: none Physical Exam - General Limitations: no limitations General appearance: alert, in no apparent distress Course Vital Signs Temperature 98.4 F 06/17/18 15:34 Pulse Rate 60 06/17/18 15:34 Respiratory Rate 18 04/29/19 15:34 Blood Pressure 86/52 06/17/18 15:34 O2 Sat by Pulse Oximetry 100 06/17/18 15:34 Temperature 98.4 F 06/17/18 15:34 Pulse Rate 60 06/17/18 17:26 Respiratory Rate 18 06/17/18 17:26 Blood Pressure 95/60 06/17/18 17:26 O2 Sat by Pulse Oximetry 100 06/17/18 17:26 Oxygen Delivery Oxygen Delivery Room Air Medical Decision Making - MDM Narrative Medical decision making narrative: Chest X-Ray 06/17/18 16:17 IMPRESSION: No acute process. D/ / Gilberto Andrade MD / Gilberto Andrade MD Interpreting Provider: Gilberto Andrade MD 1813 hrs.: Patient's labs are back chronic renal insufficiency little bit of elevation in potassium. With his hypotension the history of malnutrition not eating or drinking well and the weight loss and negative be prudent to bring him in for further evaluation. He and are in agreement with this plan. Impression is hypotension with syncope and weight loss, failure to thrive. - Lab Data Result diagrams: 06/17/18 17:09 06/17/18 17:09 Lab Results 06/17/18 06/17/18 06/17/18 Range/Units 17:09 17:09 17:09 WBC 9.1 (4.3-11.1) K/mcL RBC 5.16 (4.19-5.50) M/mcL Hgb 16.1 (12.9-16.9) g/dL Hct 49.2 (37.5-50.1) % MCV 95.3 (83.0-100.0) fL MCH 31.2 (28.0-33.3) pg MCHC 32.7 (31.6-35.5) g/dL RDW 13.1 (11.5-14.5) % Plt Count 187 (140-400) K/mcL MPV 9.8 (9.4-12.4) fL Immature Gran % 0.6 (0-4) % Seg Neutrophils % 74.2 % Lymphocytes % 14.9 % Monocytes % 6.9 % Eosinophils % 2.8 % Basophils % 0.6 % Neutrophils # 6.7 (1.6-8.9) K/mcL Lymphocytes # 1.4 (0.6-4.6) K/mcL Monocytes # 0.6 (0.0-1.3) K/mcL Eosinophils # 0.3 (0.0-0.6) K/mcL Basophils # 0.1 (0.0-0.2) K/mcL Sodium 135 L (136-145) mEq/L Potassium 5.7 H (3.5-5.1) mEq/L Chloride 105 (98-107) mEq/L Carbon Dioxide 24 (23-29) mEq/L BUN 25 H (8-23) mg/dL Creatinine 1.73 H (0.70-1.30) mg/dL Est GFR ( Amer) 47 L (> 60) Est GFR (Non-Af Amer) 39 L (> 60) BUN/Creatinine Ratio 14 (6-26) Glucose 118 H (70-105) mg/dL Calculated Osmolality 285 (280-300) Calcium 9.6 (8.6-10.3) mg/dL B-Natriuretic Peptide 176 H (Less than 100) pg/mL Attestation Statement - Attestation Attestation: This documentation is done with the assistance of Dragon dictation. Despite efforts made to ensure accuracy, there may be inaccuracies in financial controller or spelling and typographical errors. I examined this patient and my medical decision-making was reviewed with the Resident Physician. I agree with the documented findings, disposition and treatment plan as described except to the extent set forth below. Patient seen and evaluated today by Dr. Rubin and myself, I agree with his evaluation and treatment plan, supervise care the patient's stay. Patient comes in with hypotension from outpatient clinic. He is been worked up for a 40 pound weight loss or last couple months on no uncertain reason for that this time. However he thinks because he still in his regular strength of blood pressure medicine that that might be what dropping his blood pressure today was 84 over [place]. Feeling some weakness but no chest pain. We will order a workup on him looking his medicines are think he may be right about that with the weight loss. Then we will reassess. He may have to come into the hospital. He is in agreement with plan.
[2018-06-17] MEDS ORDERED: 0.9 % Sodium Chloride 500 ML IVC ONE (16:48)
--- NOTE | 2018-06-17 16:50 | Emergency Department Note ---
Disposition Clinical Impression: Near syncope, CKD (chronic kidney disease) stage 3, GFR 30-59 ml/min Hypotension Qualifiers: Hypotension type: orthostatic hypotension Qualified Code(s): I95.1 - Orthostatic hypotension Disposition: Admitted As Inpatient Condition: Fair Time of Disposition: 19:31 General Adult HPI - General Chief complaint: ED Weakness Stated complaint: weakness/hypotension Time Seen by Provider: 06/17/18 16:16 Source: patient Mode of arrival: ambulatory Limitations: no limitations Nursing Notes Reviewed: Yes Vital Signs Reviewed: Yes - History of Present Illness HPI Narrative: Patient presenting from outpatient urology clinic due to presyncopal episode which occurred immediately prior to arrival. Patient states that he sat down in the waiting room and became diaphoretic experience vision changes and felt as though his can pass out. Patient states that he has not had an episode like this in the past. Patient states he has been on a severely caloric restricted diet since January as well as being on 39 ounces of fluid per day. Patient past medical history of congestive heart failure, prostatitis, Patient currently admits to shortness of breath and suprapubic tenderness which is chronic to palpation. but denies chest pain, nausea or vomiting. Patient has no other symptoms or concerns at this time. Pain Scale: 0 - Related Data Home Medications Medication Instructions Recorded Confirmed Ergocalciferol (VITAMIN D2) 50,000 unit PO MO 11/27/16 06/17/18 [Vitamin D2] Dorzolamide/Timolol/Pf 1 drop LEFT EYE Q12H 01/22/18 06/17/18 [Dorzolamide-Timolol 2%-0.5%] Latanoprost [Xalatan] 1 drop LEFT EYE QPM 01/22/18 06/17/18 Aspirin [Lo-Dose Aspirin EC] 81 mg PO DAILY 04/29/18 06/17/18 Docusate [Colace] 100 mg PO DAILY PRN 06/17/18 06/17/18 Esomeprazole Magnesium [Nexium] 20 mg PO DAILY 06/17/18 06/17/18 Ranitidine HCl [Acid Optical Glass Silverer] 150 mg PO HS 06/17/18 06/17/18 Sacubitril/Valsartan 49/51 mg 1 tab PO BID 06/17/18 06/17/18 [Entresto 49 mg-51 mg Tablet] Tramadol HCl [Ultram] 50 mg PO Q8HR 06/17/18 06/17/18 Previous Rx's Medication Instructions Recorded Potassium Chloride [Klor-Con 10] 10 meq PO BID #60 tablet.er 01/24/18 Carvedilol [Coreg] 12.5 mg PO BID #0 04/30/18 Furosemide [Lasix] 20 mg PO QAM #0 04/30/18 Allergies Allergy/AdvReac Type Severity Reaction Status Date / Time cephalexin Allergy Hives Verified 11/21/16 09:25 Constitutional: Denies: fever, chills Cardiovascular: Denies: chest pain Respiratory: Reports: dyspnea Gastrointestinal: Denies: abdominal pain, nausea, vomiting, diarrhea, janny temesis, hematochezia Musculoskeletal: Denies: back pain, neck pain Neurological: Reports: weakness. Denies: numbness, paresthesias Past Medical History - Past Medical History Medical history: Reports: cardiomyopathy, CHF, coronary artery disease, glaucoma, hypertension, other Surgical history: Reports: appendectomy, prostatectomy, AICD Psychiatric history: Reports: no psych history - Social History Smoking Status: Former smoker Smokeless Tobacco Status: No Alcohol use: Reports: none Drug use: Reports: none Physical Exam - General Limitations: no limitations General appearance: alert, in no apparent distress - Head Head exam: atraumatic, normocephalic, normal inspection - Eye Eye exam: Present: normal appearance, PERRL, EOMI. Absent: scleral icterus - Neck Neck exam: Present: normal inspection, trachea midline. Absent: lymphadenopathy - Chest Chest inspection: Present: normal inspection, symmetric chest wall rise - Respiratory Respiratory exam: Present: normal lung sounds bilaterally. Absent: respiratory distress, wheezes, stridor, accessory muscle use, prolonged expiratory phase - Cardiovascular Cardiovascular exam: Present: regular rate, normal rhythm, normal heart sounds, +S1, +S2. Absent: systolic murmur, diastolic murmur, JVD, +S3, +S4 - Abdominal Exam Abdominal exam: Present: soft, Non-Tender, normal bowel sounds. Absent: distention, guarding, rebound, rigidity, organomegaly - Extremities Exam Extremities exam: Present: normal inspection. Absent: pedal edema - Neurological Exam Neurological exam: Present: alert, oriented X3 - Psychiatric Psychiatric exam: Present: normal affect, normal mood - Skin Skin exam: Present: warm, dry, intact, normal color. Absent: rash, cyanosis, diaphoresis, erythema, pallor, mottled Course Vital Signs Temperature 98.4 F 06/17/18 15:34 Pulse Rate 60 06/17/18 15:34 Respiratory Rate 18 06/17/18 15:34 Blood Pressure 86/52 06/17/18 15:34 O2 Sat by Pulse Oximetry 100 06/17/18 15:34 Temperature 98.4 F 06/17/18 15:34 Pulse Rate 75 06/17/18 19:29 Respiratory Rate 15 06/17/18 19:29 Blood Pressure 110/59 06/17/18 19:29 O2 Sat by Pulse Oximetry 97 06/17/18 19:29 Oxygen Delivery Oxygen Delivery Room Air Medical Decision Making - MDM Narrative Medical decision making narrative: Laboratory and imaging results are negative for acute pathology Patient ended hospitalist medicine service for further evaluation and management of hypotension with presyncopal episode. - Lab Data Lab results reviewed: Yes I reviewed the patient's lab results. Result diagrams: 06/17/18 17:09 06/17/18 17:09 Lab Results 06/17/18 06/17/18 06/17/18 Range/Units 17:09 17:09 17:09 WBC 9.1 (4.3-11.1) K/mcL RBC 5.16 (4.19-5.50) M/mcL Hgb 16.1 (12.9-16.9) g/dL Hct 49.2 (37.5-50.1) % MCV 95.3 (83.0-100.0) fL MCH 31.2 (28.0-33.3) pg MCHC 32.7 (31.6-35.5) g/dL RDW 13.1 (11.5-14.5) % Plt Count 187 (140-400) K/mcL MPV 9.8 (9.4-12.4) fL Immature Gran % 0.6 (0-4) % Seg Neutrophils % 74.2 % Lymphocytes % 14.9 % Monocytes % 6.9 % Eosinophils % 2.8 % Basophils % 0.6 % Neutrophils # 6.7 (1.6-8.9) K/mcL Lymphocytes # 1.4 (0.6-4.6) K/mcL Monocytes # 0.6 (0.0-1.3) K/mcL Eosinophils # 0.3 (0.0-0.6) K/mcL Basophils # 0.1 (0.0-0.2) K/mcL Sodium 135 L (136-145) mEq/L Potassium 5.7 H (3.5-5.1) mEq/L Chloride 105 (98-107) mEq/L Carbon Dioxide 24 (23-29) mEq/L BUN 25 H (8-23) mg/dL Creatinine 1.73 H (0.70-1.30) mg/dL Est GFR ( Amer) 47 L (> 60) Est GFR (Non-Af Amer) 39 L (> 60) BUN/Creatinine Ratio 14 (6-26) Glucose 118 H (70-105) mg/dL Calculated Osmolality 285 (280-300) Calcium 9.6 (8.6-10.3) mg/dL Troponin I < 0.03 (< 0.04) ng/mL B-Natriuretic Peptide 176 H (Less than 100) pg/mL - Radiology Data Radiology results reviewed: Yes I reviewed the patient's radiology results. Chest X-Ray 06/17/18 16:17 IMPRESSION: No acute process. D/ / Gilberto Andrade MD / Gilberto Andrade MD Interpreting Provider: Gilberto Andrade MD
[2018-06-17 17:34] LABS: Basophils # 0.1 K/mcL (0.0-0.2); Basophils % 0.6 %; Eosinophils # 0.3 K/mcL (0.0-0.6); Eosinophils % 2.8 %; Hematocrit 49.2 % (37.5-50.1); Hemoglobin 16.1 g/dL (12.9-16.9); Immature Granulocytes % 0.6 % (0-4); Lymphocytes # 1.4 K/mcL (0.6-4.6); Lymphocytes % 14.9 %; Mean Corpuscular HGB Conc 32.7 g/dL (31.6-35.5); Mean Corpuscular Hemoglobin 31.2 pg (28.0-33.3); Mean Corpuscular Volume 95.3 fL (83.0-100.0); Mean Platelet Volume 9.8 fL (9.4-12.4); Monocytes # 0.6 K/mcL (0.0-1.3); Monocytes % 6.9 %; Neutrophils # 6.7 K/mcL (1.6-8.9); Platelet Count 187 K/mcL (140-400); Red Blood Count 5.16 M/mcL (4.19-5.50); Red Cell Distribution Width 13.1 % (11.5-14.5); Segmented Neutrophils % 74.2 %
[2018-06-17 17:54] LABS: BUN/Creatinine Ratio 14 (6-26); Blood Urea Nitrogen 25 mg/dL (8-23); Calcium 9.6 mg/dL (8.6-10.3); Carbon Dioxide 24 mEq/L (23-29); Chloride 105 mEq/L (98-107); Glucose 118 mg/dL (70-105); Osmolality,Calculated 285 (280-300); Potassium 5.7 mEq/L (3.5-5.1); Sodium 135 mEq/L (136-145); eGFR For Non-African Americans 39 (> 60)
[2018-06-17 18:17] LABS: Troponin I < 0.03 ng/mL (< 0.04)
--- NOTE | 2018-06-17 21:28 | Internal Med History&Physical ---
Date of Encounter: 06/17/18 Time of Encounter: 21:26 Internal Medicine - H&P: HPI Chief complaint: lightheaded Admitted From: Home Plans for Post Hospital Care: Home History of present illness: Mookie Russo is a 87-year-old man with hypertension, coronary artery disease, dilated cardiomyopathy with an EF of 10-15% in 2017 status post by BiV ICD as well as severe mitral regurgitation who came to the ER on for from the urology clinic where he had a presyncopal episode characterized by an acute onset diaphoresis, lightheadedness, fatigue and visual changes feeling as though he were about to pass out. He was notably hypotensive on arrival to the ER at 86/52 and responded to fluid resuscitation. He relates that he has been on a severe fluid and salt restrictive diet since January due to his heart failure and he has also had about 40 pounds of weight loss which is unintentional but does report a number of episodes of diarrhea of chronicity. View of old records revealed that he was seen by cardiology a month ago where he also complained of intermittent episodes of dizziness and diarrhea since starting Entresto as well as low BP. He reports that he takes his blood pressure at home and has noted a decreasing trend over the last few months this morning seeing it at 90/50 but all the same has remained adherent to his antihypertensive and cardiac medications. Vitals: Reviewed General: Well-appearing -[place] male sitting up in bed in no acute distress. Skin: Warm and dry. HEENT: Moist mucous membranes. No conjunctivae pallor. Neck: No lymphadenopathy. No JVD. No carotid bruits. No palpable thyroid. Chest: Normal thoracic expansion. Normal breath sounds. Clear to auscultation. ICD on left upper chest wall. Heart: Normal S1 & S2; rhythmic. Abdomen: Non-distended, soft and non-tender to palpation. No peritoneal reaction. Extremities: No clubbing, cyanosis or edema. No calf tenderness. Normal distal pulses. Neurological: Awake, alert and oriented to person, place and time. No focal deficits. Psych: Affect appropriate. Assessment/Plan 1. Presyncope: Likely secondary to hypotension secondary to fluid/salt restriction leading to volume depletion in addition to his medications which would add a compounding effect. He has also lost a lot of weight since the first dietary and medications recommendations were given and may no longer be appropriate for his size. His volume depletion is also affected by his chronic diarrhea. Will hold all his antihypertensives tonight, give a liberal diet and they can be resumed at lower doses as of tomorrow once stability is ensured. 2. Hyperkalemia: Noted. He is on potassium supplementation and Entresto which are being held for now. Will recheck in the morning. No concerning EKG changes. 3. Chronic diarrhea: Unclear why. HE relates that he has seen a coat baster and is scheduled for follow up soon. He reports having had a colonoscopy within the last 2 years and was without anomaly. Advised to follow up. Current bowel movements are normal. 4. HFrEF: Improved EF noted last month now at 30-35%. Has been Rx BB, ACEI/ARB, furosemide which will be on hold today for hypotension. 5. CAD: Mild 3v disease seen in 2017. Continue daily aspirin. Past Med Surg Social Fam HX - Past Medical History Medical history: cardiomyopathy, CHF, coronary artery disease, glaucoma, hypertension, other Additional medical history: BPH Psychiatric history: no psych history - Past Surgical History Surgical History: appendectomy, prostatectomy, AICD Additional surgical history: Lasik left eye, prostate needle biopsy - Social History Smoking Status: Former smoker Smokeless Tobacco Status: No Alcohol use: none Drug use: none - Family History Mother Living Status: Hx Family Cardiac Disorders: Yes Internal Medicine - H&P: Meds Ergocalciferol (VITAMIN D2) [Vitamin D2] 50,000 unit PO MO 11/27/16 [History] Dorzolamide/Timolol/Pf [Dorzolamide-Timolol 2%-0.5%] 1 drop LEFT EYE Q12H 01/22/18 [History] Latanoprost [Xalatan] 1 drop LEFT EYE QPM 01/22/18 [History] Potassium Chloride [Klor-Con 10] 10 meq PO BID #60 tablet.er 01/24/18 [Rx] Aspirin [Lo-Dose Aspirin EC] 81 mg PO DAILY 04/29/18 [History] Carvedilol [Coreg] 12.5 mg PO BID #0 04/30/18 [Rx] Furosemide [Lasix] 20 mg PO QAM #0 04/30/18 [Rx] Docusate [Colace] 100 mg PO DAILY PRN 06/17/18 [History] Esomeprazole Magnesium [Nexium] 20 mg PO DAILY 06/17/18 [History] Ranitidine HCl [Acid History Teacher] 150 mg PO HS 06/17/18 [History] Sacubitril/Valsartan 49/51 mg [Entresto 49 mg-51 mg Tablet] 1 tab PO BID 06/17/18 [History] Tramadol HCl [Ultram] 50 mg PO Q8HR 06/17/18 [History] Allergy/AdvReac Type Severity Reaction Status Date / Time cephalexin Allergy Hives Verified 11/21/16 09:25 All Systems PM: A 10-system review of systems was performed and is negative for pertinent findings except as documented above in the HPI. - Constitutional Vitals: Temp Pulse Resp BP Pulse Ox 98 F 67 16 114/68 99 06/17/18 20:25 06/17/18 20:25 06/17/18 20:25 06/17/18 20:25 06/17/18 20:25 Exam: . Internal Med - H&P Results - Labs CBC & Chem 7: 06/17/18 17:09 06/17/18 17:09 Labs: Short CBC 06/17/18 Range/Units 17:09 WBC 9.1 (4.3-11.1) K/mcL Hgb 16.1 (12.9-16.9) g/dL Hct 49.2 (37.5-50.1) % Plt Count 187 (140-400) K/mcL Neutrophils # 6.7 (1.6-8.9) K/mcL BMP 06/17/18 17:09 Sodium 135 L Potassium 5.7 H Chloride 105 Carbon Dioxide 24 BUN 25 H Creatinine 1.73 H Glucose 118 H Calcium 9.6 Cardiac Enzymes 06/17/18 Range/Units 17:09 Troponin I < 0.03 (< 0.04) ng/mL - Impressions ITS Impressions Chest X-Ray 06/17/18 16:17 IMPRESSION: No acute process. D/ / Gilberto Andraed MD / Gilberto Andrade MD Interpreting Provider: Gilberto Andrade MD - Time Spent With Patient Total time spent is greater than 50% in coordination of care (as documented) at patient's floor/unit and/or counseling patient: Greater than 35 minutes
[2018-06-17] MEDS: Famotidine 20 MG TABLET PO SCH (22:23)
[2018-06-17] MEDS: Dorzolamide/Timolol OPTH 10 ML BOTTLE LEFT EYE SCH (23:19)
[2018-06-18 05:19] LABS: INR 1.2; Prothrombin Time 13.1 Seconds (9.4-12.1)
[2018-06-18 05:22] LABS: Activated Partial Thrombo Time 34.4 Seconds (26.0-36.0)
[2018-06-18 05:43] LABS: Calcium 8.9 mg/dL (8.6-10.3); Potassium 4.1 mEq/L (3.5-5.1)
[2018-06-18] MEDS: *HR* Heparin 5,000 UNIT/ML VIAL SQ SCH ×2 (06:17→17:06)
[2018-06-18 06:34] LABS: Potassium 4.2 mEq/L (3.5-5.1)
--- NOTE | 2018-06-18 08:51 | Internal Med Progress Note ---
Hospitalist Progress Note - Encounter Date of Encounter: 06/18/18 Time of Encounter: 11:00 - Subjective Interval History: Patient is a 87-year-old male with past medical history significant for ischemic cardiomyopathy (mild 3V CAD/Dilated CMP EF 10-15%) with BiV ICD in 2017 and severe mitral regurgitation who presents due to recurrent presyncopal episodes as was just discharged on 04/30/18 for the same. - Exam Vitals: Temp Pulse Resp BP Pulse Ox 98.2 F 64 18 108/64 98 06/18/18 06:58 06/18/18 06:58 06/18/18 06:58 06/18/18 06:58 06/18/18 06:58 Exam: . - Assessment and Plan (1) Near syncope Current Visit: Yes Status: Acute Assessment and Plan: Patient presented from urology office with witness presyncopal episode with associated symptoms of diaphoresis, visual changes and lightheadedness as patient reports that he felt like he was going to "pass out." In the ER, patient found to be hypotensive with blood pressure 86/52 which responded to fluid resuscitation. Apparently patient has been on a severe fluid and salt restriction and had been seen by cardiology as an outpatient recently due to low blood pressures on Entresto Patient does have a significant past medical history of ischemic cardiomyopathy as below Cardiology consulted for any additional recommendations on medical management as medications could be contributing to syncopal episode in addition to known ischemic cardiomyopathy (2) Ischemic cardiomyopathy Current Visit: No Status: Acute Assessment and Plan: Patient with a significant past medical history of mild 3V CAD in addition to dilated CMP with EF 10-15%. Patient also with BiV ICD in 2017 BNP 176 and troponin less than 0.03 on admission; chest x-ray showed no acute findings Patient currently on ASA, Lasix, Coreg and Entresto (3) Severe mitral regurgitation Current Visit: No Status: Acute Assessment and Plan: Patient with a documented history of severe mitral regurgitation (4) CKD (chronic kidney disease) stage 3, GFR 30-59 ml/min Current Visit: Yes Status: Acute Assessment and Plan: Patient's creatinine 1.45 which is at baseline Continue to monitor (5) HTN (hypertension) Current Visit: No Status: Acute Assessment and Plan: Continue home medications DVT Prophylaxis: Heparin subcutaneous - Time Spent with Patient Total time spent is greater than 50% in coordination of care (as documented) at patient's floor/unit and/or counseling patient: Internal Medicine: Result - Labs CBC & Chem 7: 06/17/18 17:09 06/18/18 06:07 Labs: Short CBC 06/17/18 Range/Units 17:09 WBC 9.1 (4.3-11.1) K/mcL Hgb 16.1 (12.9-16.9) g/dL Hct 49.2 (37.5-50.1) % Plt Count 187 (140-400) K/mcL Neutrophils # 6.7 (1.6-8.9) K/mcL BMP 06/17/18 06/18/18 06/18/18 17:09 04:50 06:07 Sodium 135 L 135 L Potassium 5.7 H 4.1 D 4.2 Chloride 105 106 Carbon Dioxide 24 23 BUN 25 H 22 Creatinine 1.73 H 1.45 H Glucose 118 H 87 Calcium 9.6 8.9 Cardiac Enzymes 06/17/18 Range/Units 17:09 Troponin I < 0.03 (< 0.04) ng/mL - ABG Interpretation ABG results: PT/INR, D-dimer PT 13.1 Seconds (9.4-12.1) H 06/18/18 04:50 - Impressions Impressions Chest X-Ray 06/17/18 16:17 IMPRESSION: No acute process. D/ / Gilberto Andrade MD / Gilberto Andrade MD Interpreting Provider: Gilberto Andrade MD Consult Discharge Plan - Plan Referrals: Leon Ayon MD [Primary Care Provider] - (5) HTN (hypertension) Qualifiers: Hypertension type: essential hypertension Qualified Code(s): I10 - Essential (primary) hypertension
[2018-06-18] MEDS: Aspirin Enteric Coated 81 MG Tablet PO SCH (09:21)
[2018-06-18] MEDS: Dorzolamide/Timolol OPTH 10 ML BOTTLE LEFT EYE SCH ×2 (09:24→21:30)
--- NOTE | 2018-06-18 12:52 | Cardiology Consult Note ---
<Mirza Thakur - Last Filed: 06/18/18 13:53> Date of Encounter: 06/18/18 Time of Encounter: 12:38 Assessment and Plan (1) Near syncope Current Visit: Yes Status: Acute Near syncopal symptoms likely due to hypotension and aortic insufficiency. Found to be severely hypotensive during event. Anti-hypertensives held and b/p improved. Patient denies recurrent symptoms. EKG shows AV pacing. Recent TTE reviewed by Dr. Sanchez. EF 30-35%. Aortic regurgitation likely moderate to more severe range. Also seen to have moderate mitral regurgitation. Discussed with Dr Sanchez, pre-syncope, hypotension, and chest pain may be related to heart valve disease. Hypotension may also be secondary to significant weight loss over last 6 months. VALENTINA recommended to evaluate further. (2) Hypotension Current Visit: Yes Status: Acute Agree with holding entresto. Restart carvedilol and increase as tolerated. Qualifiers: Hypotension type: hypotension due to drug Qualified Code(s): I95.2 - Hypotension due to drugs (3) Ischemic cardiomyopathy Current Visit: No Status: Acute H/o NICMP. Chronic HFrEF. EF 30-35% on echo 04/2018. ICD in place. Currently euvolemic on exam. BNP 176. Restart lasix as needed. Telemetry review shows two small runs NSVT up to 6 beats. BB being restarted. Keep potassium at 4.0 or greater and magnesium at 2.0. Low sodium diet. Daily weights. (4) CAD (coronary artery disease) Current Visit: No Status: Acute Mild non-obstructive CAD on [facility] in 2017 with EF 15%. 30% stenosis in the Proximal LAD. The lesion has a SYLVIA flow of 3. 30% stenosis in the Mid LAD. 50% stenosis in the Proximal Circumflex. 30% stenosis in the Mid RCA. Troponin negative. No active chest pain. Continue asa, statin, and low dose bb. Qualifiers: Coronary Disease-Associated Artery/Lesion type: [place] artery [place] vs. transplanted heart: [place] heart Associated angina: without angina Qualified Code(s): I25.10 - Atherosclerotic heart disease of [place] coronary artery without angina pectoris Discussion w patient/family: The assessment and plan as outlined above was discussed with the patient and/or family members who expressed understanding and agreement. All questions were answered. Thank you for involving us in the care of your patient. Please call with any questions. History of Present Illness Consult date: 06/18/18 Requesting physician: Ganesh Garrido Consult reason: pre-syncope known NICMP Chief complaint: diaphoresis, blurred vision, lightheadedness, hypotension History of present illness: Mr. Russo is a 77 year old male with past medical history significant for dilated cardiomyoapthy with EF 30-35%, ICD placement 2017, mild non-obstructive CAD on [facility] in 2016. He presents from the urology office with c/o diaphoresis, lightheadedness, and blurred vision. B/p found to be as low as 69 systolic in the urology office per patient. C/o low blood pressure at home for the past 2-3 weeks. B/p 90's systolic. He states he has lost 29 lbs since January. Denies change in diet or physical activity. He was also started back on entresto at his last cardiology appt 05/07/18. He also c/o left sided chest pressure two weeks ago when he was walking on his treadmill in his garage. His chest pain was constant for one week before going away on its own. Prior cardiac testing: [facility] 2017: Mild non-obstructive CAD. TTE 04/2018: EF 30-35%. Mild concentric LVH, moderate aortic regurgitation, mild to moderate MR, mild to moderate TR. Moderate PAH. Past Med Surg Social Fam HX - Past Medical History Medical history: cardiomyopathy, CHF, coronary artery disease, glaucoma, hypertension, valvular heart disease, other Additional medical history: BPH Psychiatric history: no psych history - Past Surgical History Surgical History: appendectomy, prostatectomy, AICD Additional surgical history: Lasik left eye, prostate needle biopsy - Social History Smoking Status: Former smoker Smokeless Tobacco Status: No Alcohol use: none Drug use: none - Family History Mother Living Status: Hx Family Cardiac Disorders: Yes Medications and Allergies Ergocalciferol (VITAMIN D2) [Vitamin D2] 50,000 unit PO MO 11/27/16 [History] Dorzolamide/Timolol/Pf [Dorzolamide-Timolol 2%-0.5%] 1 drop LEFT EYE Q12H 01/22/18 [History] Latanoprost [Xalatan] 1 drop LEFT EYE QPM 01/22/18 [History] Potassium Chloride [Klor-Con 10] 10 meq PO BID #60 tablet.er 01/24/18 [Rx] Furosemide [Lasix] 20 mg PO QAM #0 04/30/18 [Rx] Sacubitril/Valsartan 49/51 mg [Entresto 49 mg-51 mg Tablet] 1 tab PO BID 06/17/18 [History] Aspirin [Adult Aspirin Regimen] 81 mg PO DAILY 06/18/18 [History] Carvedilol [Coreg] 25 mg PO BID 06/18/18 [History] Allergy/AdvReac Type Severity Reaction Status Date / Time cephalexin Allergy Hives Verified 11/21/16 09:25 All Systems Review: The remainder of the systems were reviewed and are negative Physical Examination Vital Signs, Last 4 Hours Temp Pulse Resp BP Pulse Ox 06/18/18 11:33 98.0 F 64 18 109/58 99 General: Conversant, No Apparent Distress HEENT: Atraumatic, Normocephaly, Mucus Membranes Moist Neck: No JVD, Normal carotid pulses Cardiac: Reg Rate and Rhythm, Normal S1 and S2, No Murmur Lungs: Normal Breath Sounds, No Wheeze, Rales, Rhonchi Neuro: Alert and responsive, No focal deficits noted Abdomen: Soft, Non-Tender Skin: No rashes noted on visualized skin Musculoskeletal: No Chest Wall Tenderness Extremities: No Clubbing, No Cyanosis, No Edema, Normal Pulses Results 06/17/18 17:09 06/18/18 06:07 Lab Results 06/17/18 06/17/18 06/17/18 17:09 17:09 17:09 WBC 9.1 Hgb 16.1 Hct 49.2 Plt Count 187 INR APTT Sodium 135 L Potassium 5.7 H Chloride 105 Carbon Dioxide 24 BUN 25 H Creatinine 1.73 H Glucose 118 H Calcium 9.6 Troponin I < 0.03 B-Natriuretic Peptide 176 H 06/18/18 06/18/18 06/18/18 04:50 04:50 06:07 WBC Hgb Hct Plt Count INR 1.2 APTT 34.4 Sodium 135 L Potassium 4.1 D 4.2 Chloride 106 Carbon Dioxide 23 BUN 22 Creatinine 1.45 H Glucose 87 Calcium 8.9 Troponin I B-Natriuretic Peptide - Imaging and Cardiology Echo: report reviewed Cardiac cath: report reviewed - EKG Interpretation EKG results cardiology: personally reviewed Consult Discharge Plan - Plan Referrals: Leon Ayon MD [Primary Care Provider] - <Bo Sanchez A - Last Filed: 06/18/18 15:39> Date of Encounter: 06/18/18 - Attending Attestation I have personally performed a face to face evaluation on this patient. I have reviewed and agree with the documented findings and care plan as documented by the [facility]. History and Exam by me shows: 77-year-old pleasant gentleman with history of ischemic cardiomyopathy s/p AICD, HFrEF on Entresto and Carvedilol, admitted for profound symptomatic hypotension. AAOX3 in NAD at the bedside Hemodynamically stable Cardiopulmonary exam revealed S1, S2, grade 3/6 diastolic murmur LLSE, grade 3/6 apical holosystolic murmur; clear lungs Echocardiogram review suggests moderate to severe AI and moderate MR Mild non-obstructive CAD on [facility] in 2017 with EF 15%. 30% stenosis in the Proximal LAD. The lesion has a SYLVIA flow of 3. 30% stenosis in the Mid LAD. 50% stenosis in the Proximal Circumflex. 30% stenosis in the Mid RCA. Impression/plan: Hypotension may be secondary to Entresto, which has been held. May continue carvedilol at 3.125 mg twice a day. Interrogate AICD. Obtain VALENTINA to document severity and mechanism of AI and MR. If AI is severe, he may benefit from AVR Bo Denton MD [facility] Assessment and Plan Discussion w patient/family: The assessment and plan as outlined above was discussed with the patient and/or family members who expressed understanding and agreement. All questions were answered. Thank you for involving us in the care of your patient. Please call with any questions. History of Present Illness History of present illness: Mr. Russo is a 77 year old male All Systems Review: The remainder of the systems were reviewed and are negative Physical Examination Vital Signs, Last 4 Hours Temp Pulse Resp BP Pulse Ox 06/18/18 15:19 98.3 F 70 18 112/59 99 06/18/18 11:33 98.0 F 64 18 109/58 99 Results 06/17/18 17:09 06/18/18 06:07 Lab Results 06/17/18 06/17/18 06/17/18 17:09 17:09 17:09 WBC 9.1 Hgb 16.1 Hct 49.2 Plt Count 187 INR APTT Sodium 135 L Potassium 5.7 H Chloride 105 Carbon Dioxide 24 BUN 25 H Creatinine 1.73 H Glucose 118 H Calcium 9.6 Magnesium Troponin I < 0.03 B-Natriuretic Peptide 176 H 06/18/18 06/18/18 06/18/18 04:50 04:50 06:07 WBC Hgb Hct Plt Count INR 1.2 APTT 34.4 Sodium 135 L Potassium 4.1 D 4.2 Chloride 106 Carbon Dioxide 23 BUN 22 Creatinine 1.45 H Glucose 87 Calcium 8.9 Magnesium 2.0 Troponin I B-Natriuretic Peptide
--- NOTE | 2018-06-18 14:03 | Electrocardiograph Report ---
[address] [address] Test Date: 2018-06-17 Pat Name: Mookie Russo Department: [id number] Room: 2A Gender: M Cco: : 1940 Requested By: Gatito Lockett Order Number: [id number] Reading MD: Mary King Measurements Intervals [place] Rate: 60 P: 18 CT: 132 QRS: 4 QRSD: 143 T: QT: 457 QTc: 457 Interpretive Statements Atrial-ventricular dual-paced rhythm No further analysis attempted due to paced rhythm Electronically Signed On 06-18-2018 14:02:19 EDT by Mary King
[2018-06-18] MEDS ORDERED: Latanoprost 2.5 ML BOTTLE LEFT EYE SCH ×2 (18:00→21:00)
[2018-06-18] MEDS: Famotidine 20 MG TABLET PO SCH (20:07)
[2018-06-19] MEDS: *HR* Heparin 5,000 UNIT/ML VIAL SQ SCH (05:30)
[2018-06-19] MEDS: Aspirin Enteric Coated 81 MG Tablet PO SCH (07:19)
[2018-06-19] MEDS: Dorzolamide/Timolol OPTH 10 ML BOTTLE LEFT EYE SCH (08:07)
[2018-06-19 08:31] LABS: Basophils # 0.1 K/mcL (0.0-0.2); Basophils % 0.9 %; Eosinophils # 0.4 K/mcL (0.0-0.6); Eosinophils % 5.3 %; Hematocrit 45.2 % (37.5-50.1); Hemoglobin 14.8 g/dL (12.9-16.9); Immature Granulocytes % 0.2 % (0-4); Lymphocytes # 2.2 K/mcL (0.6-4.6); Lymphocytes % 33.8 %; Mean Corpuscular HGB Conc 32.7 g/dL (31.6-35.5); Mean Corpuscular Hemoglobin 30.6 pg (28.0-33.3); Mean Corpuscular Volume 93.6 fL (83.0-100.0); Mean Platelet Volume 9.9 fL (9.4-12.4); Monocytes # 0.8 K/mcL (0.0-1.3); Monocytes % 12.1 %; Neutrophils # 3.2 K/mcL (1.6-8.9); Platelet Count 162 K/mcL (140-400); Red Blood Count 4.83 M/mcL (4.19-5.50); Segmented Neutrophils % 47.7 %
[2018-06-19 08:49] LABS: Magnesium 1.9 mg/dL (1.6-2.6); Phosphorous 3.6 mg/dL (2.7-4.5); Potassium 3.9 mEq/L (3.5-5.1)
[2018-06-19] MEDS ORDERED: *HR* FentaNYL (PF) 100 MCG/2 ML VIAL IVP PRN (09:43)
[2018-06-19] MEDS ORDERED: *HR* Midazolam HCl 5 MG/5 ML VIAL IVP PRN (09:43)
[2018-06-19] MEDS ORDERED: 0.9 % Sodium Chloride 500 ML IVC ONE (09:43)
[2018-06-19] MEDS ORDERED: Lidocaine Viscous Oral Soln 15 ML SOLUTION MM PRN (09:43)
--- NOTE | 2018-06-19 12:13 | Event Note ---
Date of Encounter: 06/19/18 Time of Encounter: 12:11 - Cardiology Event Note VALENTINA today to assess valvular dysfunction. Per discussion with , mild- moderate AR. Device interrogated with non-sustained VT in the monitor zones. No sustained episodes of VT, no therapies delivered. Suspect syncopal event related to hypotension. Continue BB. WOuld not recommend restarting entresto at this time due to hypotension. Can re-evaluate in outpateint setting. Discussed and reviewed with . Cardiology will sign off. Will arrange outpatient follow up.
--- NOTE | 2018-06-19 12:52 | Discharge Summary ---
Date of Encounter: 06/19/18 Time of Encounter: 12:49 - Discharge Diagnosis (1) Ischemic cardiomyopathy Priority: Secondary Status: Chronic (2) CKD (chronic kidney disease) stage 3, GFR 30-59 ml/min Priority: Secondary Status: Chronic (3) HTN (hypertension) Priority: Secondary Status: Chronic Qualifiers: Hypertension type: essential hypertension Qualified Code(s): I10 - Essential (primary) hypertension (4) Near syncope Priority: Primary Status: Acute (5) Severe mitral regurgitation Priority: Secondary Status: Chronic (6) Hypotension Priority: Primary Status: Resolved Qualifiers: Hypotension type: hypotension due to drug Qualified Code(s): I95.2 - Hypotension due to drugs Hospital course: Mr. Russo is a 77 year old male PMH hypertension, coronary artery disease, dilated cardiomyopathy with an EF of 10-15% in 2017 status post by BiV ICD as well as severe mitral regurgitation who came to the ER on for from the urology clinic where he had a presyncopal episode characterized by an acute onset diaphoresis, lightheadedness, fatigue and visual changes feeling as though he were about to pass out. He was notably hypotensive on arrival to the ER at 86/52 and responded to fluid resuscitation. Patient admitted to the hospital due to near syncope, secondary to hypotension. Possible due to jannet-pharmacy. managed with IV fluids and medication adjustment, entresto and furosemide were discontinued and carvedilol dose decreased to 3.125mg/PO BID. Cardiology consulted patient underwent a VALENTINA today to assess valvular dysfunction. Mild- moderate AR. Device interrogated with non-sustained VT in the monitor zones. No sustained episodes of VT, no therapies delivered. Cardiology recommended outpatient follow up. Patient is hemodynamically stable to be discharged home. Recommended to follow-up with cardiology within a week of hospital discharge. - Time Spent with Patient Total time spent providing and/or coordinating discharge services: Time spent: Greater than 30 minutes (35) - Discharge Medications Prescriptions: New RX: Carvedilol [Coreg] 3.125 mg PO BIDWM 30 Days #60 tablet Continued RX: Ergocalciferol (VITAMIN D2) [Vitamin D2] 50,000 unit PO MO RX: Latanoprost [Xalatan] 1 drop LEFT EYE QPM RX: Dorzolamide/Timolol/Pf [Dorzolamide-Timolol 2%-0.5%] 1 drop LEFT EYE Q12H RX: Aspirin [Adult Aspirin Regimen] 81 mg PO DAILY Discontinued RX: Potassium Chloride [Klor-Con 10] 10 meq PO BID #60 tablet.er RX: Furosemide [Lasix] 20 mg PO QAM #0 Sacubitril/Valsartan 49/51 mg [Entresto 49 mg-51 mg Tablet] 1 tab PO BID RX: Carvedilol [Coreg] 25 mg PO BID Home Medications: RX: Ergocalciferol (VITAMIN D2) [Vitamin D2] 50,000 unit PO MO 11/27/16 [History] RX: Dorzolamide/Timolol/Pf [Dorzolamide-Timolol 2%-0.5%] 1 drop LEFT EYE Q12H 01/22/18 [History] RX: Latanoprost [Xalatan] 1 drop LEFT EYE QPM 01/22/18 [History] RX: Aspirin [Adult Aspirin Regimen] 81 mg PO DAILY 06/18/18 [History] RX: Carvedilol [Coreg] 3.125 mg PO BIDWM 30 Days #60 tablet 06/19/18 [Rx] Allergies/Adverse Reactions: Allergy/AdvReac Type Severity Reaction Status Date / Time cephalexin Allergy Hives Verified 11/21/16 09:25 Date of admission: 06/17/18 19:19 Primary care physician: Leon Ayon MD Consults: 06/17/18 20:45 Consult to Nutrition [CONS] Routine Comment: Consulting Provider: NUTRITION Reason for Dietary Consult: Diet Education 06/18/18 08:50 Consult to Cardiology [CONS] Routine Comment: Consulting Provider: Cardiology Sonya Reason for Consult: Recurrent presyncopal episodes with significant ischemic cardiomyopathy Call Completed: No - Constitutional Vitals: Temp Pulse Resp BP Pulse Ox 97.6 F 70 16 127/72 99 06/19/18 09:59 06/19/18 09:59 06/19/18 09:59 06/19/18 09:59 06/19/18 09:59 Exam: Vitals: Reviewed General: Alert and oriented x4. In no distress Skin: Normal color, no rash, no lesions. HEENT: EOM, pupils equal, round and reactive. Cardiovascular: RRR, normal S1 & S2, no rubs, murmurs or gallops. Lungs: CTA b/l, no wheezes or crackles. Abdomen: Soft, non-tender, no rigidity. Extremities: No deformity, no edema or tenderness, no joint swelling or clubbing. Neurological: Normal cognition and motor skills. Rest of the physical exam is non contributory - Patient Status Disposition: Home, Self-Care Condition: Good Functional capacity at discharge: independent ambulation Overall status at discharge: patient is back to baseline - Discharge Instructions Follow Up With: Leon Ayon MD [Primary Care Provider] - - Diet and Activity Activity: resume usual activities as tolerated Diet: low salt diet
[2018-06-19 15:00] VITALS: BP 113/72
== END 2018-06-19 15:09 | disposition home or self-care (01) ==
LOC: EMEROOARM 15:30 → 2ANU 15:30 → SUATTDRO 19:19 → 2ANU 20:15
PROVIDERS: ADMIT Student in an Organized Health Care Education/Training Program; ATTEND Internal Medicine

== ENCOUNTER 2018-06-21 17:26 | Observation (INO) ==
[2018-06-21] MEDS ORDERED: Aspirin 81 MG TAB.CHEW PO ONE (17:43)
--- NOTE | 2018-06-21 17:51 | Emergency Department Note ---
Disposition Clinical Impression: Chest tightness, Orthopnea CHF (congestive heart failure) Qualifiers: Heart failure type: unspecified Heart failure chronicity: unspecified Qualified Code(s): I50.9 - Heart failure, unspecified Disposition: Admitted As Inpatient Condition: Fair Referrals: Leon Ayon MD [Primary Care Provider] - General Adult HPI - General Stated complaint: CP Time Seen by Provider: 06/21/18 17:29 Source: patient, family Mode of arrival: private vehicle Limitations: no limitations Nursing Notes Reviewed: Yes Vital Signs Reviewed: Yes - History of Present Illness HPI Narrative: The patient is a 77-year-old male with past medical history including hypertension, coronary artery disease, dilated cardiomyopathy with ejection fraction of 10-15% in 2017 status post biventricular ICD, severe mitral regurgitation, presenting with chief complaint of chest tightness. The patient was recently admitted on June 17 for a presyncopal episode with lightheadedness, diaphoresis, fatigue and visual changes, hypotension. The patient responded to fluid resuscitation. His symptoms are likely secondary to polypharmacy. His medications were adjusted. Entrista, furosemide were discontinued. His carvedilol dose was decreased to 3.125 mg by mouth twice a day. Cardiology did a VALENTINA to assess valvular dysfunction. He has mild to moderate atrial regurgitation. His device was also interrogated and showed nonsustained V. tach in the monitor zones. No sustained episodes were noted. Patient was discharged home on June 19. The patient states his symptoms resolved and he had no chest tightness or shortness of breath. Today, he complains of intermittent episodes of chest tightness and shortness of breath. He states these are the same symptoms he had prior to his hospitalization. However he denies any lightheadedness, diaphoresis, near syncope. He states the symptoms occur when he gets up to move around and with exertion. He also has these symptoms when he lays flat. He denies symptoms at rest. On arrival to the emergency department, he is asymptomatic. He denies abdominal pain, nausea or vomiting, back pain. Pain Scale: 0 - Related Data Home Medications Medication Instructions Recorded Confirmed Ergocalciferol (VITAMIN D2) 50,000 unit PO MO 11/27/16 06/18/18 [Vitamin D2] Dorzolamide/Timolol/Pf 1 drop LEFT EYE Q12H 12/04/18 04/30/19 [Dorzolamide-Timolol 2%-0.5%] Latanoprost [Xalatan] 1 drop LEFT EYE QPM 01/22/18 06/18/18 Aspirin [Adult Aspirin Regimen] 81 mg PO DAILY 06/18/18 06/18/18 Previous Rx's Medication Instructions Recorded Carvedilol [Coreg] 3.125 mg PO BIDWM 30 Days #60 06/19/18 tablet Allergies Allergy/AdvReac Type Severity Reaction Status Date / Time cephalexin Allergy Hives Verified 11/21/16 09:25 All systems ED: reviewed and negative except as stated. Review of Systems: As Per HPI Constitutional: Denies: fever, chills ENT ED: Denies: congestion Cardiovascular: Reports: chest pain. Denies: palpitations Respiratory: Reports: dyspnea. Denies: cough Gastrointestinal: Denies: abdominal pain, nausea, vomiting, diarrhea Genitourinary: Denies: dysuria Musculoskeletal: Denies: back pain Neurological: Denies: headache, weakness, numbness Past Medical History - Past Medical History Attestation: Yes The following information was validated with the patient. Source: patient Medical history: Reports: cardiomyopathy, CHF, coronary artery disease, glaucoma, hypertension, valvular heart disease, other Surgical history: Reports: appendectomy, pacemaker/AICD Psychiatric history: Reports: no psych history - Social History Smoking Status: Former smoker Smokeless Tobacco Status: No Alcohol use: Reports: none Drug use: Reports: none Physical Exam - General Limitations: no limitations General appearance: alert, in no apparent distress - Head Head exam: atraumatic, normocephalic, normal inspection - Eye Eye exam: Present: normal appearance, EOMI - ENT ENT exam: normal exam, normal oropharynx - Neck Neck exam: Present: normal inspection, trachea midline - Chest Chest inspection: Present: normal inspection, symmetric chest wall rise. Absent: tenderness - Respiratory Respiratory exam: Present: normal lung sounds bilaterally. Absent: respiratory distress, wheezes - Cardiovascular Cardiovascular exam: Present: regular rate, normal rhythm, +S1, +S2, other (Bilateral radial pulses palpable and equal) - Abdominal Exam Abdominal exam: Present: soft, Non-Tender. Absent: distention, guarding, rebound - Extremities Exam Extremities exam: Present: normal capillary refill. Absent: pedal edema, calf tenderness - Neurological Exam Neurological exam: Present: alert, oriented X3 - Psychiatric Psychiatric exam: Present: normal affect - Skin Skin exam: Present: warm, dry. Absent: cyanosis, diaphoresis, pallor Course Vital Signs Temperature 98.6 F 06/21/18 17:32 Pulse Rate 108 06/21/18 17:32 Respiratory Rate 14 06/21/18 17:32 Blood Pressure 130/109 06/21/18 17:32 O2 Sat by Pulse Oximetry 100 06/21/18 17:32 Temperature 98.6 F 06/21/18 17:32 Pulse Rate 74 06/21/18 19:10 Respiratory Rate 20 06/21/18 19:10 Blood Pressure 121/63 06/21/18 19:10 O2 Sat by Pulse Oximetry 100 06/21/18 19:10 Oxygen Delivery Oxygen Delivery Room Air Medical Decision Making - MDM Narrative Medical decision making narrative: Patient's medications were recently adjusted as he had symptomatic hypotension. He was taken off his entrista and Lasix, Coreg decreased. He is presenting with chest tightness and shortness of breath that is intermittent and worse with exertion. At this time, he is asymptomatic at rest. EKG shows no acute ischemic changes. He does have a biventricular ICD and is paced. He is likely fluid overloaded given his recent medication adjustments. He states he is on a fluid restriction as well. We will obtain chest x-ray, CBC, BMP, BNP, troponin. 19:00 Chest x-ray shows no acute cardiopulmonary process. BNP is elevated in the 700s. On his prior admission, it was in the 100s. He is likely fluid overloaded given his medication changes. We will give him a dose of 40 mg IV Lasix. He will require admission for fluid removal and further cardiac rehabilitation. Troponin is <0.03. Will page hospitalist for admission. 19:[address] Bazan who accepts admission. - Medical Records Medical records reviewed: Yes I reviewed the patient's medical records. - Lab Data Lab results reviewed: Yes I reviewed the patient's lab results. Result diagrams: 06/21/18 17:53 06/21/18 17:53 Lab Results 06/21/18 06/21/18 06/21/18 Range/Units 17:53 17:53 17:53 WBC 6.9 (4.3-11.1) K/mcL RBC 5.05 (4.19-5.50) M/mcL Hgb 15.7 (12.9-16.9) g/dL Hct 46.8 (37.5-50.1) % MCV 92.7 (83.0-100.0) fL MCH 31.1 (28.0-33.3) pg MCHC 33.5 (31.6-35.5) g/dL RDW 13.2 (11.5-14.5) % Plt Count 182 (140-400) K/mcL MPV 9.7 (9.4-12.4) fL Immature Gran % 0.3 (0-4) % Seg Neutrophils % 52.0 % Lymphocytes % 30.2 % Monocytes % 10.9 % Eosinophils % 6.0 % Basophils % 0.6 % Neutrophils # 3.6 (1.6-8.9) K/mcL Lymphocytes # 2.1 (0.6-4.6) K/mcL Monocytes # 0.8 (0.0-1.3) K/mcL Eosinophils # 0.4 (0.0-0.6) K/mcL Basophils # 0.0 (0.0-0.2) K/mcL PT 11.7 (9.4-12.1) Seconds INR 1.0 APTT 33.6 (26.0-36.0) Seconds Sodium (136-145) mEq/L Potassium (3.5-5.1) mEq/L Chloride (98-107) mEq/L Carbon Dioxide (23-29) mEq/L BUN (8-23) mg/dL Creatinine (0.70-1.30) mg/dL Est GFR ( Amer) (> 60) Est GFR (Non-Af Amer) (> 60) BUN/Creatinine Ratio (6-26) Glucose (70-105) mg/dL Calculated Osmolality (280-300) Calcium (8.6-10.3) mg/dL Troponin I (< 0.04) ng/mL B-Natriuretic Peptide 745 H (Less than 100) pg/mL Urine Color (Yellow) Urine Clarity (Clear) Urine pH (5.0-8.0) pH Units Ur Specific [place] (1.010-1.025) Urine Protein (Neg-Trace) mg/dL Urine Glucose (UA) (Normal) mg/dL Urine Ketones (Negative) mg/dL Urine Blood (Negative) Urine Nitrite (Negative) Urine Bilirubin (Negative) Urine Urobilinogen (Normal) mg/dL Ur Leukocyte Esterase (Negative) Ur Culture Indicated? (NO) 06/21/18 06/21/18 Range/Units 17:53 18:53 WBC (4.3-11.1) K/mcL RBC (4.19-5.50) M/mcL Hgb (12.9-16.9) g/dL Hct (37.5-50.1) % MCV (83.0-100.0) fL MCH (28.0-33.3) pg MCHC (31.6-35.5) g/dL RDW (11.5-14.5) % Plt Count (140-400) K/mcL MPV (9.4-12.4) fL Immature Gran % (0-4) % Seg Neutrophils % % Lymphocytes % % Monocytes % % Eosinophils % % Basophils % % Neutrophils # (1.6-8.9) K/mcL Lymphocytes # (0.6-4.6) K/mcL Monocytes # (0.0-1.3) K/mcL Eosinophils # (0.0-0.6) K/mcL Basophils # (0.0-0.2) K/mcL PT (9.4-12.1) Seconds INR APTT (26.0-36.0) Seconds Sodium 136 (136-145) mEq/L Potassium 4.0 (3.5-5.1) mEq/L Chloride 102 (98-107) mEq/L Carbon Dioxide 25 (23-29) mEq/L BUN 17 (8-23) mg/dL Creatinine 1.55 H (0.70-1.30) mg/dL Est GFR ( Amer) 53 L (> 60) Est GFR (Non-Af Amer) 44 L (> 60) BUN/Creatinine Ratio 11 (6-26) Glucose 126 H (70-105) mg/dL Calculated Osmolality 285 (280-300) Calcium 9.6 (8.6-10.3) mg/dL Troponin I < 0.03 (< 0.04) ng/mL B-Natriuretic Peptide (Less than 100) pg/mL Urine Color Dark Yellow (Yellow) Urine Clarity Clear (Clear) Urine pH 5.5 (5.0-8.0) pH Units Ur Specific [place] 1.021 (1.010-1.025) Urine Protein Trace (Neg-Trace) mg/dL Urine Glucose (UA) Normal (Normal) mg/dL Urine Ketones Trace H (Negative) mg/dL Urine Blood Negative (Negative) Urine Nitrite Negative (Negative) Urine Bilirubin Small H (Negative) Urine Urobilinogen Normal (Normal) mg/dL Ur Leukocyte Esterase Negative (Negative) Ur Culture Indicated? NO (NO) - Radiology Data Radiology results reviewed: Yes I reviewed the patient's radiology results. Chest X-Ray 06/21/18 17:43 IMPRESSION: No acute process. D/ / Gilberto Andrade MD / Gilberto Andrade MD Interpreting Provider: Gilberto Andrade MD - EKG Data EKG #1 EKG attestation: Yes I reviewed and interpreted this EKG. EKG results narrative: EKG obtained at 1736 shows atrial sensed ventricular paced complexes with heart rate 104, CT interval 158, QT 374, QRS duration 163, no ST elevation or depression. Compared to old EKG which shows no acute changes. Attestation Statement - Attestation Attestation: I, Lino Lozada DO, examined this patient [id number] and my medical decision-making was reviewed with Dr. Lizbet Wilder , Resident Physician. I agree with the documented findings, disposition and treatment plan as described except to the extent set forth below. I personally supervised and was present for the thompson/critical portions of the procedures completed by the resident documented below. Please see my progress notes for details.
[2018-06-21 18:11] LABS: Basophils % 0.6 %; Eosinophils # 0.4 K/mcL (0.0-0.6); Hematocrit 46.8 % (37.5-50.1); Hemoglobin 15.7 g/dL (12.9-16.9); Immature Granulocytes % 0.3 % (0-4); Lymphocytes # 2.1 K/mcL (0.6-4.6); Lymphocytes % 30.2 %; Mean Corpuscular HGB Conc 33.5 g/dL (31.6-35.5); Mean Corpuscular Hemoglobin 31.1 pg (28.0-33.3); Mean Corpuscular Volume 92.7 fL (83.0-100.0); Mean Platelet Volume 9.7 fL (9.4-12.4); Monocytes # 0.8 K/mcL (0.0-1.3); Monocytes % 10.9 %; Neutrophils # 3.6 K/mcL (1.6-8.9); Platelet Count 182 K/mcL (140-400); Red Blood Count 5.05 M/mcL (4.19-5.50); Red Cell Distribution Width 13.2 % (11.5-14.5)
--- NOTE | 2018-06-21 18:13 | Emergency Department Note ---
Disposition Clinical Impression: Orthopnea CHF (congestive heart failure) Qualifiers: Heart failure type: unspecified Heart failure chronicity: unspecified Qualified Code(s): I50.9 - Heart failure, unspecified Disposition: Admitted As Inpatient Condition: Fair Referrals: Leon Ayon MD [Primary Care Provider] - Time of Disposition: 19:39 General Adult HPI - General Chief complaint: ED Chest Pain Stated complaint: CP Time Seen by Provider: 06/21/18 17:29 Source: patient, family Mode of arrival: private vehicle Limitations: no limitations - History of Present Illness Pain Scale: 0 - Related Data Home Medications Medication Instructions Recorded Confirmed Ergocalciferol (VITAMIN D2) 50,000 unit PO MO 11/27/16 06/18/18 [Vitamin D2] Dorzolamide/Timolol/Pf 1 drop LEFT EYE Q12H 01/22/18 06/18/18 [Dorzolamide-Timolol 2%-0.5%] Latanoprost [Xalatan] 1 drop LEFT EYE QPM 01/22/18 06/18/18 Aspirin [Adult Aspirin Regimen] 81 mg PO DAILY 06/18/18 06/18/18 Previous Rx's Medication Instructions Recorded Carvedilol [Coreg] 3.125 mg PO BIDWM 30 Days #60 06/19/18 tablet Allergies Allergy/AdvReac Type Severity Reaction Status Date / Time cephalexin Allergy Hives Verified 11/21/16 09:25 Past Medical History - Past Medical History Medical history: Reports: cardiomyopathy, CHF, coronary artery disease, glaucoma, hypertension, valvular heart disease, other Surgical history: Reports: appendectomy, pacemaker/AICD Psychiatric history: Reports: no psych history - Social History Smoking Status: Former smoker Smokeless Tobacco Status: No Alcohol use: Reports: none Drug use: Reports: none Physical Exam - General Limitations: no limitations General appearance: alert, in no apparent distress Course Vital Signs Temperature 98.6 F 06/21/18 17:32 Pulse Rate 108 06/21/18 17:32 Respiratory Rate 14 06/21/18 17:32 Blood Pressure 130/109 06/21/18 17:32 O2 Sat by Pulse Oximetry 100 06/21/18 17:32 Temperature 98.6 F 06/21/18 17:32 Pulse Rate 74 06/21/18 19:10 Respiratory Rate 20 05/03/19 19:10 Blood Pressure 121/63 05/03/19 19:10 O2 Sat by Pulse Oximetry 100 06/21/18 19:10 Oxygen Delivery Oxygen Delivery Room Air Medical Decision Making - Lab Data Result diagrams: 06/21/18 17:53 06/21/18 17:53 Lab Results 06/21/18 06/21/18 06/21/18 Range/Units 17:53 17:53 17:53 WBC 6.9 (4.3-11.1) K/mcL RBC 5.05 (4.19-5.50) M/mcL Hgb 15.7 (12.9-16.9) g/dL Hct 46.8 (37.5-50.1) % MCV 92.7 (83.0-100.0) fL MCH 31.1 (28.0-33.3) pg MCHC 33.5 (31.6-35.5) g/dL RDW 13.2 (11.5-14.5) % Plt Count 182 (140-400) K/mcL MPV 9.7 (9.4-12.4) fL Immature Gran % 0.3 (0-4) % Seg Neutrophils % 52.0 % Lymphocytes % 30.2 % Monocytes % 10.9 % Eosinophils % 6.0 % Basophils % 0.6 % Neutrophils # 3.6 (1.6-8.9) K/mcL Lymphocytes # 2.1 (0.6-4.6) K/mcL Monocytes # 0.8 (0.0-1.3) K/mcL Eosinophils # 0.4 (0.0-0.6) K/mcL Basophils # 0.0 (0.0-0.2) K/mcL PT 11.7 (9.4-12.1) Seconds INR 1.0 APTT 33.6 (26.0-36.0) Seconds Sodium (136-145) mEq/L Potassium (3.5-5.1) mEq/L Chloride (98-107) mEq/L Carbon Dioxide (23-29) mEq/L BUN (8-23) mg/dL Creatinine (0.70-1.30) mg/dL Est GFR ( Amer) (> 60) Est GFR (Non-Af Amer) (> 60) BUN/Creatinine Ratio (6-26) Glucose (70-105) mg/dL Calculated Osmolality (280-300) Calcium (8.6-10.3) mg/dL Troponin I (< 0.04) ng/mL B-Natriuretic Peptide 745 H (Less than 100) pg/mL Urine Color (Yellow) Urine Clarity (Clear) Urine pH (5.0-8.0) pH Units Ur Specific [place] (1.010-1.025) Urine Protein (Neg-Trace) mg/dL Urine Glucose (UA) (Normal) mg/dL Urine Ketones (Negative) mg/dL Urine Blood (Negative) Urine Nitrite (Negative) Urine Bilirubin (Negative) Urine Urobilinogen (Normal) mg/dL Ur Leukocyte Esterase (Negative) Ur Culture Indicated? (NO) 06/21/18 06/21/18 Range/Units 17:53 18:53 WBC (4.3-11.1) K/mcL RBC (4.19-5.50) M/mcL Hgb (12.9-16.9) g/dL Hct (37.5-50.1) % MCV (83.0-100.0) fL MCH (28.0-33.3) pg MCHC (31.6-35.5) g/dL RDW (11.5-14.5) % Plt Count (140-400) K/mcL MPV (9.4-12.4) fL Immature Gran % (0-4) % Seg Neutrophils % % Lymphocytes % % Monocytes % % Eosinophils % % Basophils % % Neutrophils # (1.6-8.9) K/mcL Lymphocytes # (0.6-4.6) K/mcL Monocytes # (0.0-1.3) K/mcL Eosinophils # (0.0-0.6) K/mcL Basophils # (0.0-0.2) K/mcL PT (9.4-12.1) Seconds INR APTT (26.0-36.0) Seconds Sodium 136 (136-145) mEq/L Potassium 4.0 (3.5-5.1) mEq/L Chloride 102 (98-107) mEq/L Carbon Dioxide 25 (23-29) mEq/L BUN 17 (8-23) mg/dL Creatinine 1.55 H (0.70-1.30) mg/dL Est GFR ( Amer) 53 L (> 60) Est GFR (Non-Af Amer) 44 L (> 60) BUN/Creatinine Ratio 11 (6-26) Glucose 126 H (70-105) mg/dL Calculated Osmolality 285 (280-300) Calcium 9.6 (8.6-10.3) mg/dL Troponin I < 0.03 (< 0.04) ng/mL B-Natriuretic Peptide (Less than 100) pg/mL Urine Color Dark Yellow (Yellow) Urine Clarity Clear (Clear) Urine pH 5.5 (5.0-8.0) pH Units Ur Specific [place] 1.021 (1.010-1.025) Urine Protein Trace (Neg-Trace) mg/dL Urine Glucose (UA) Normal (Normal) mg/dL Urine Ketones Trace H (Negative) mg/dL Urine Blood Negative (Negative) Urine Nitrite Negative (Negative) Urine Bilirubin Small H (Negative) Urine Urobilinogen Normal (Normal) mg/dL Ur Leukocyte Esterase Negative (Negative) Ur Culture Indicated? NO (NO) Attestation Statement - Attestation Attestation: I, Lino Lozada DO, examined this patient [id number] and my medical decision-making was reviewed with Dr. Lizbet Wilder , Resident Physician. I agree with the documented findings, disposition and treatment plan as described except to the extent set forth below. I personally supervised and was present for the thompson/critical portions of the procedures completed by the resident documented below. Please see my progress notes for details. 77-year-old male presents emergency room for evaluation of chest tightness and shortness of breath. Patient was recently seen and evaluated and discharged home from the hospital on the first of this month. Patient has known congestive heart failure with an ejection fraction 10-15% which was confirmed by echocardiogram completed within the last several days. Patient is currently asymptomatic. He denies any chest pain shortness of breath fevers chills nausea vomiting or diarrhea. No headache no vision change. Patient said that the symptoms only present when he gets up to walk around or ambulates. Currently, the patient's vital signs are stable. He is alert he is oriented. Head is a medic. Extremities are moist. Oropharynx is patent. Trachea is midline. No stridor no trismus. Lungs are clear heart is regular. No pitting edema or swelling noted in the lower extremities patient will have repeat cardiac evaluation completed here at this time including troponin and BNP chest x-ray EK G CBC chemistry and. Symptomatically controlled be established if needed. Otherwise the patient is appropriate intervention place including an AICD. He is asymptomatic with sitting. Discussion will be had about possible admission secondary to symptomatic shortness of breath and chest tightness. He is not currently on any blood thinners outside of an aspirin. Aspirin will be given here. Will monitor closely until disposition is determined. See detailed documentation of the physical exam, medical intervention, medical decision- making and disposition in the resident physician's note. No critical care provider the patient's treatment course at this time. 1900 Patient has elevated BNP. When he left the hospital his BNP was 160. 40 Lasix will be given at this time. Concern is noted for fluid overload secondary to his heart failure causing the orthopnea and exertional dyspnea. Patient will be admitted to hospital for symptomatically control monitoring. Patient otherwise currently stable. We will monitor here until admission process is completed patient was discussed with the hospitalist Dr. mahajan. Detailed review the presentation symptoms medical intervention discussion were reviewed. Lasix has been provided. Patient is most likely a clinical decline secondary to no longer being cardiac rehabilitation when he went home. Is otherwise asymptomatic at this point and comfortable. Patient will be admitted. We will monitor here in the emergency department until the admission process is completed.
[2018-06-21 18:17] LABS: Prothrombin Time 11.7 Seconds (9.4-12.1)
[2018-06-21 18:20] LABS: Activated Partial Thrombo Time 33.6 Seconds (26.0-36.0)
[2018-06-21 18:32] LABS: BUN/Creatinine Ratio 11 (6-26); Blood Urea Nitrogen 17 mg/dL (8-23); Calcium 9.6 mg/dL (8.6-10.3); Carbon Dioxide 25 mEq/L (23-29); Chloride 102 mEq/L (98-107); Glucose 126 mg/dL (70-105); Osmolality,Calculated 285 (280-300); Sodium 136 mEq/L (136-145); Troponin I < 0.03 ng/mL (< 0.04); eGFR For Non-African Americans 44 (> 60)
[2018-06-21] MEDS ORDERED: Furosemide 40 MG/4 ML VIAL IVP ONE (18:59)
[2018-06-21 19:04] LABS: Bilirubin,Urine Small (Negative); Blood,Urine Negative (Negative); Clarity,Urine Clear (Clear); Color,Urine Dark Yellow (Yellow); Glucose,Urine (UA) Normal (Normal); Ketones,Urine Trace mg/dL (Negative); Leukocyte Esterase,Urine Negative (Negative); Nitrite,Urine Negative (Negative); PH,Urine 5.5 pH Units (5.0-8.0); Protein,Urine Trace mg/dL (Neg-Trace); Specific Gravity,Urine 1.021 (1.010-1.025); Urobilinogen,Urine Normal (Normal)
[2018-06-21] MEDS ORDERED: Naloxone 0.4 MG/ML INJ IVP PRN (21:04)
--- NOTE | 2018-06-21 21:13 | Internal Med History&Physical ---
Date of Encounter: 06/21/18 Time of Encounter: 20:50 Internal Medicine - H&P: HPI Chief complaint: Shortness of breath Admitted From: Emergency Dept Plans for Post Hospital Care: Home History of present illness: Mr. Russo is a 77 year old male Patient presented to the emergency room with chest tightness and shortness of breath. He had recently been admitted on June 17 for hypotension and near syncope. He was discharged on June 19, and states that he felt pretty good at that point. The night previously to his admission here he says he went to bed and had a small chest pain. When he woke up in the morning that pain was gone but he did have a tightness feeling and a little bit of shortness of breath. 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 He did not have the same kind of presyncope and hypotension symptoms that he had for his previous admission. In the emergency room patient's vital signs were within normal limits, CBC was also normal. BMP showed a creatinine of 1.55 which is patient's baseline. He has a GFR of 53, undetectable troponin and BNP of 745. During his previous admission his BNP was 176. Urinalysis was negative for infection. Chest x-ray showed no acute process. EKG was similar to previous with no ischemic changes. He was given 40 mg of IV Lasix and admitted to the hospital for further evaluation. Upon my assessment, patient is resting comfortably in the hospital bed in no acute distress. He denies chest pain, abdominal pain, nausea, vomiting, diarrhea and constipation. He states that during his previous admission he had a lot of his medications changed, and his Lasix had been discontinued. He is feeling better since he arrived. He states that his mother had open heart surgery but he is not sure why. He denies significant medical problems on his father's side of the family. His sister has a history of gallbladder cancer and macular degeneration. He is a full code. Past Med Surg Social Fam HX - Past Medical History Medical history: cardiomyopathy, CHF, coronary artery disease, glaucoma, hypertension, valvular heart disease, other Additional medical history: BPH Psychiatric history: no psych history - Past Surgical History Surgical History: appendectomy, pacemaker/AICD Additional surgical history: Lasik left eye, prostate needle biopsy - Social History Smoking Status: Former smoker Smokeless Tobacco Status: No Alcohol use: none Drug use: none - Family History Mother Living Status: Hx Family Cardiac Disorders: Yes Internal Medicine - H&P: Meds Ergocalciferol (VITAMIN D2) [Vitamin D2] 50,000 unit PO MO 11/27/16 [History] Dorzolamide/Timolol/Pf [Dorzolamide-Timolol 2%-0.5%] 1 drop LEFT EYE Q12H 01/22/18 [History] Latanoprost [Xalatan] 1 drop LEFT EYE QPM 01/22/18 [History] Aspirin [Adult Aspirin Regimen] 81 mg PO DAILY 06/18/18 [History] Carvedilol [Coreg] 3.125 mg PO BIDWM 30 Days #60 tablet 06/19/18 [Rx] Allergy/AdvReac Type Severity Reaction Status Date / Time cephalexin Allergy Hives Verified 11/21/16 09:25 All Systems PM: A 10-system review of systems was performed and is negative for pertinent findings except as documented above in the HPI. - Constitutional Vitals: Temp Pulse Resp BP Pulse Ox 98.3 F 83 16 122/71 100 06/21/18 20:53 06/21/18 20:53 06/21/18 20:53 06/21/18 20:53 06/21/18 20:53 General appearance: Present: cooperative, A&O X 3, pleasant, no acute distress, answers questions appropriately Exam: - - Head Head exam: Present: normal inspection - Eye Eye exam: Present: EOMI, normal appearance - Respiratory Respiratory exam: Present: decreased breath sounds, CTAB. Absent: rales, respiratory distress, rhonchi, wheezes - Cardiovascular Cardiovascular exam: Present: RRR. Absent: diastolic murmur, systolic murmur - GI/Abdominal GI/Abdominal exam: Present: normal bowel sounds, soft. Absent: tenderness - Extremities Exam Extremities exam: Present: warm, radial pulses palpable and symmetrical. Absent: calf tenderness, pedal edema, tenderness - Neurological Exam Neurological exam: Present: no focal deficits, strengths equal and symetr throughout. Absent: motor sensory deficit, facial droop, speech deficit - Skin Skin exam: Present: dry, normal color, warm Internal Med - H&P Results - Labs CBC & Chem 7: 06/21/18 17:53 05/03/19 17:53 Labs: Short CBC 06/21/18 Range/Units 17:53 WBC 6.9 (4.3-11.1) K/mcL Hgb 15.7 (12.9-16.9) g/dL Hct 46.8 (37.5-50.1) % Plt Count 182 (140-400) K/mcL Neutrophils # 3.6 (1.6-8.9) K/mcL BMP 06/21/18 17:53 Sodium 136 Potassium 4.0 Chloride 102 Carbon Dioxide 25 BUN 17 Creatinine 1.55 H Glucose 126 H Calcium 9.6 Cardiac Enzymes 06/21/18 Range/Units 17:53 Troponin I < 0.03 (< 0.04) ng/mL Urine 06/21/18 Range/Units 18:53 Urine Color Dark Yellow (Yellow) Urine Clarity Clear (Clear) Urine pH 5.5 (5.0-8.0) pH Units Ur Specific [place] 1.021 (1.010-1.025) Urine Protein Trace (Neg-Trace) mg/dL Urine Glucose (UA) Normal (Normal) mg/dL - Impressions ITS Impressions Chest X-Ray 06/21/18 17:43 IMPRESSION: No acute process. D/ / Gilberto Andrade MD / Gilberto Andrade MD Interpreting Provider: Gilberto Andrade MD - Assessment and Plan (1) Chronic systolic (congestive) heart failure Current Visit: No Status: Acute Assessment and plan: Transesophageal echocardiogram from previous admission: Impressions: LVEF 20%. Dilated and severely hypokinetic left ventricle. Abnormal septal motion consistent with a bundle branch block. Right ventricle is normal in size. Functional appears low normal. Moderate aortic regurgitation. Moderate mitral regurgitation. Unable to estimate RVSP due to lack of adequate TR jet. Continue 40 mg Lasix Strict I's and O's Daily weights (2) Shortness of breath Current Visit: Yes Status: Acute Assessment and plan: Secondary to CHF exacerbation. BNP elevated at 745. Patient had home meds changed during his previous admission including discontinuing of his Lasix due to hypotension. Continue IV Lasix Management as above (3) Chest tightness Current Visit: Yes Status: Acute Assessment and plan: Likely secondary to CHF exacerbation. Initial troponin undetectable, no EKG changes. Continue to trend troponins Cardiac monitoring (4) CKD (chronic kidney disease) stage 3, GFR 30-59 ml/min Current Visit: No Status: Chronic Assessment and plan: Patient's kidney function at baseline. Monitor while on Lasix Repeat labs in the morning (5) DVT prophylaxis Current Visit: No Status: Acute Assessment and plan: Subcutaneous heparin - Time Spent With Patient Total time spent is greater than 50% in coordination of care (as documented) at patient's floor/unit and/or counseling patient: Greater than 35 minutes
[2018-06-21] MEDS ORDERED: Dorzolamide/Timolol 1 DROP LEFT EYE SCH ×2 (21:30→22:00)
[2018-06-22 00:44] LABS: Hematocrit 41.8 % (37.5-50.1); Mean Corpuscular HGB Conc 33.7 g/dL (31.6-35.5); Mean Corpuscular Hemoglobin 30.7 pg (28.0-33.3); Mean Corpuscular Volume 91.1 fL (83.0-100.0); Mean Platelet Volume 9.9 fL (9.4-12.4); Platelet Count 171 K/mcL (140-400); Red Blood Count 4.59 M/mcL (4.19-5.50); Red Cell Distribution Width 13.1 % (11.5-14.5)
[2018-06-22 00:47] LABS: Hemoglobin 14.1 g/dL (12.9-16.9)
[2018-06-22 01:03] LABS: Calcium 8.7 mg/dL (8.6-10.3); Potassium 3.7 mEq/L (3.5-5.1)
[2018-06-22] MEDS ORDERED: *HR* Heparin 5,000 UNIT/ML VIAL SQ SCH (06:00)
[2018-06-22 07:34] VITALS: BP 109/64
[2018-06-22] MEDS ORDERED: Aspirin Enteric Coated 81 MG Tablet PO SCH (09:00)
[2018-06-22] MEDS ORDERED: Furosemide 40 MG/4 ML VIAL IVP SCH (09:00)
[2018-06-22] MEDS ORDERED: Furosemide 20 MG/2 ML VIAL IVP SCH (09:30)
--- NOTE | 2018-06-22 09:35 | Internal Med Progress Note ---
Hospitalist Progress Note - Encounter Date of Encounter: 06/22/18 Time of Encounter: 09:33 - Exam Vitals: Temp Pulse Resp BP Pulse Ox 98.1 F 64 18 109/64 98 06/22/18 07:30 06/22/18 07:30 06/22/18 07:30 06/22/18 07:30 06/22/18 07:30 - Assessment and Plan (1) Acute on chronic systolic (congestive) heart failure Current Visit: No Status: Acute (2) Shortness of breath Current Visit: Yes Status: Acute (3) CAD (coronary artery disease) Current Visit: No Status: Acute (4) CKD (chronic kidney disease) stage 3, GFR 30-59 ml/min Current Visit: No Status: Chronic (5) History of glaucoma Current Visit: Yes Status: Acute (6) DVT prophylaxis Current Visit: No Status: Acute - Time Spent with Patient Total time spent is greater than 50% in coordination of care (as documented) at patient's floor/unit and/or counseling patient: Internal Medicine: Result - Labs CBC & Chem 7: 06/22/18 00:34 06/22/18 00:34 Labs: Short CBC 06/21/18 06/22/18 Range/Units 17:53 00:34 WBC 6.9 7.3 (4.3-11.1) K/mcL Hgb 15.7 14.1 D (12.9-16.9) g/dL Hct 46.8 41.8 (37.5-50.1) % Plt Count 182 171 (140-400) K/mcL Neutrophils # 3.6 (1.6-8.9) K/mcL BMP 06/21/18 06/22/18 17:53 00:34 Sodium 136 135 L Potassium 4.0 3.7 Chloride 102 103 Carbon Dioxide 25 25 BUN 17 17 Creatinine 1.55 H 1.69 H Glucose 126 H 116 H Calcium 9.6 8.7 Cardiac Enzymes 06/21/18 06/22/18 06/22/18 Range/Units 17:53 00:34 08:41 Troponin I < 0.03 < 0.03 0.03 (< 0.04) ng/mL Urine 06/21/18 Range/Units 18:53 Urine Color Dark Yellow (Yellow) Urine Clarity Clear (Clear) Urine pH 5.5 (5.0-8.0) pH Units Ur Specific [place] 1.021 (1.010-1.025) Urine Protein Trace (Neg-Trace) mg/dL Urine Glucose (UA) Normal (Normal) mg/dL - ABG Interpretation ABG results: PT/INR, D-dimer PT 11.7 Seconds (9.4-12.1) 06/21/18 17:53 - Impressions Impressions Chest X-Ray 06/21/18 17:43 IMPRESSION: No acute process. D/ / Gilberto Andrade MD / Gilberto Andrade MD Interpreting Provider: Gilberto Andrade MD Consult Discharge Plan - Plan Referrals: Leon Ayon MD [Primary Care Provider] - (Appointment has been requested. Office will call with date and time of appointment. ) (3) CAD (coronary artery disease) Qualifiers: Coronary Disease-Associated Artery/Lesion type: [place] artery [place] vs. transplanted heart: [place] heart Associated angina: without angina Qualified Code(s): I25.10 - Atherosclerotic heart disease of [place] coronary artery without angina pectoris
--- NOTE | 2018-06-22 11:13 | Electrocardiograph Report ---
[address] [address] Test Date: 2018-06-21 Pat Name: Mookie Russo Department: [id number] Room: 3B54 Gender: M [employer]: : 1940 Requested By: Lino Lozada Order Number: [id number] Reading MD: Mary King Measurements Intervals [place] Rate: 104 P: 77 WV: 158 QRS: -41 QRSD: 163 T: 127 QT: 374 QTc: 492 Interpretive Statements Atrial-sensed ventricular-paced complexes No further analysis attempted due to paced rhythm Electronically Signed On 06-22-2018 11:11:28 EDT by Mary King
--- NOTE | 2018-06-22 11:59 | Discharge Summary ---
<Taylor Gordon N - Last Filed: 06/22/18 12:00> - NOTES TO OUTPATIENT PROVIDER Notes to Outpatient Provider: Since the emergency department complaining of increasing shortness of breath and chest tightness. BNP was found to be elevated. Patient was started on IV Lasix, with improvement of symptoms. He was discharged home with 1 week prescription of Lasix 20 mg, as well as potassium 10 mEq daily. Repeat BMP to be performed in one week. Patient is to follow up with outpatient cardiology in 1 week. Date of Encounter: 06/22/18 Time of Encounter: 11:59 - Discharge Diagnosis (1) Shortness of breath Priority: Secondary Status: Acute (2) CAD (coronary artery disease) Priority: Secondary Status: Acute Qualifiers: Coronary Disease-Associated Artery/Lesion type: [place] artery [place] vs. transplanted heart: [place] heart Associated angina: without angina Qualified Code(s): I25.10 - Atherosclerotic heart disease of [place] coronary artery without angina pectoris (3) CKD (chronic kidney disease) stage 3, GFR 30-59 ml/min Priority: Secondary Status: Chronic (4) CHF (congestive heart failure) Priority: Primary Status: Acute Qualifiers: Heart failure type: unspecified Heart failure chronicity: unspecified Qualified Code(s): I50.9 - Heart failure, unspecified (5) Chest tightness Priority: Primary Status: Acute (6) History of glaucoma Priority: Secondary Status: Chronic Hospital course: Mr. Russo is a 77 year old male hypertension, coronary artery disease, dilated cardiomyopathy with ejection fraction of 10-15% in 2017 status post biventricular ICD, severe mitral regurgitation, presenting with chief complaint of chest tightness. Patient did have a recent hospital admission for presyncopal episode, during which his home medications were adjusted due to hypertension. Initial laboratory studies were significant for BNP of 745. Chest x-ray demonstrated no acute cardiopulmonary process. Patient was administered IV Lasix, with improvement in symptoms. Upon evaluation this morning, patient vo iced that he was no longer experiencing chest tightness or shortness of breath, and stated that he felt that he was back to baseline. He voices that he would like to go home. Patient was discharged with Lasix 20 mg and potassium 10 mEq daily 7 days. Repeat BMP to be performed in one week. Patient is to follow-up with Dr. King in cardiology outpatient clinic in approximately 1 week. - Time Spent with Patient Total time spent providing and/or coordinating discharge services: - Discharge Medications Prescriptions: New Furosemide [Lasix] 20 mg PO DAILY #7 tablet Potassium Chloride 10 meq PO DAILY #10 tab.er.prt Continued Ergocalciferol (VITAMIN D2) [Vitamin D2] 50,000 unit PO MO Latanoprost [Xalatan] 1 drop LEFT EYE QPM Dorzolamide/Timolol/Pf [Dorzolamide-Timolol 2%-0.5%] 1 drop LEFT EYE Q12H Aspirin [Adult Aspirin Regimen] 81 mg PO DAILY Carvedilol [Coreg] 3.125 mg PO BIDWM 30 Days #60 tablet Home Medications: Ergocalciferol (VITAMIN D2) [Vitamin D2] 50,000 unit PO MO 11/27/16 [History] Dorzolamide/Timolol/Pf [Dorzolamide-Timolol 2%-0.5%] 1 drop LEFT EYE Q12H 01/22/18 [History] Latanoprost [Xalatan] 1 drop LEFT EYE QPM 01/22/18 [History] Aspirin [Adult Aspirin Regimen] 81 mg PO DAILY 06/18/18 [History] Carvedilol [Coreg] 3.125 mg PO BIDWM 30 Days #60 tablet 06/19/18 [Rx] Furosemide [Lasix] 20 mg PO DAILY #7 tablet 06/22/18 [Rx] Potassium Chloride 10 meq PO DAILY #10 tab.er.prt 06/22/18 [Rx] Allergies/Adverse Reactions: Allergy/AdvReac Type Severity Reaction Status Date / Time cephalexin Allergy Hives Verified 11/21/16 09:25 Date of admission: 06/21/18 20:18 Primary care physician: Leon Ayon MD Discharging clinician: Taylor Gordon Anticipated date of discharge: 06/22/18 - Constitutional Vitals: Temp Pulse Resp BP Pulse Ox 98.1 F 64 18 109/64 98 06/22/18 07:30 06/22/18 07:30 06/22/18 07:30 06/22/18 07:30 06/22/18 07:30 General appearance: Present: cooperative, A&O X 3, pleasant, no acute distress, answers questions appropriately Exam: GENERAL: Well-developed, well-nourished adult male in no acute distress. He is ambulating easily throughout the room with no apparent discomfort or shortness of breath. HEENT: Atraumatic and normocephalic. CARDIOVASCULAR: Regular rate and rhythm. S1 and S2 present. RESPIRATORY: Clear to auscultation bilaterally. Chest rises and falls symmetrically without accessory muscle use. GASTROINTESTINAL: Abdomen is soft, nontender, nondistended. EXTREMITIES: No clubbing, cyanosis, or edema. SKIN: Warm, dry, and intact. NEUROLOGIC: Alert and oriented x3. Patient is cooperative with exam and answers questions appropriately. No apparent focal deficits. PSYCHIATRIC: Appropriate mood and affect. - Patient Status Disposition: Home, Self-Care Condition: Fair Functional capacity at discharge: independent ambulation Overall status at discharge: patient is progressing back to baseline - Ambulatory Orders Ambulatory Orders: Basic Metabolic Panel [CHEM] Time Frame: 1 Week, Location: Determined By Patient - Discharge Instructions Instructions: Furosemide (By mouth), Potassium Chloride (By mouth), Heart Failure (DC) Follow Up With: Leon Ayon MD [Primary Care Provider] - (Appointment has been requested. Office will call with date and time of appointment. ) Kenn King MD [Partnered Physician] - (Appointment has been requested. Office will call with date and time of appointment. ) Forms: ED Satisfaction Letter Additional Instructions: Follow-up with her PCP in 3-5 days for reevaluation. Have follow-up appointment with Dr. King in outpatient cardiology clinic in one week. Continue taking your daily home medications. Take Lasix 20 mg daily and potassium 10 mEq daily for 1 week. Have repeat metabolic panel drawn in 1 week, and follow up with her PCP about your lab results. Return to the emergency department if you have chest pain, worsening shortness of breath, chest tightness, deep breathing, or if any new concerns arise. - Diet and Activity Activity: increase activity as tolerated Diet: other (Cardiac diet) <Cristina Sandra - Last Filed: 06/22/18 13:22> Date of Encounter: 06/22/18 Time of Encounter: 09:10 - Discharge Diagnosis (1) CHF (congestive heart failure) Status: Acute Qualifiers: Heart failure type: unspecified Heart failure chronicity: unspecified Qualified Code(s): I50.9 - Heart failure, unspecified (2) CKD (chronic kidney disease) stage 3, GFR 30-59 ml/min Status: Chronic (3) CAD (coronary artery disease) Status: Acute Qualifiers: Coronary Disease-Associated Artery/Lesion type: [place] artery [place] vs. transplanted heart: [place] heart Associated angina: without angina Qualified Code(s): I25.10 - Atherosclerotic heart disease of [place] coronary artery without angina pectoris (4) Chest tightness Status: Acute (5) Shortness of breath Status: Acute (6) History of glaucoma Status: Chronic Hospital course: Mr. Russo is a 77 year old male - Time Spent with Patient Total time spent providing and/or coordinating discharge services: Time spent: Less than 30 minutes (10 min) Date of admission: 06/21/18 20:18 Primary care physician: Leon Ayon MD - Constitutional Vitals: Temp Pulse Resp BP Pulse Ox 98.1 F 64 18 109/64 98 06/22/18 07:30 06/22/18 07:30 06/22/18 07:30 06/22/18 07:30 06/22/18 07:30 - Attending Attestation I saw evaluated and examined this patient and my medical decision-making was reviewed with the Resident Physician, Taylor Gordon. I agree with the documented findings, disposition and treatment plan as described except to any changes set forth below. We independently had [id number] contact with the patient. Patient with history of hypertension, coronary artery disease, cardiomyopathy with a low ejection fraction of 10-15% who presented to the ER with complaints of shortness of breath and chest tightness. He had been discharged from the hospital recently where he was treated for hypotension. During that time, his Lasix was stopped. Patient reported increased exertional dyspnea. In the ER he received Lasix with good improvement in his urine output and his symptoms. Today he denies any chest pain or shortness of breath. He does have underlying chronic kidney disease stage III. Creatinine is at his baseline. Blood pressure is well controlled. He has not had any further hypotensive episodes. At this time he is clinically stable to be discharged home. He will be discharged on 20 mg of oral Lasix daily. He is also been advised to be on fluid restriction for 1.5 L per day. On exam, patient does not have any pedal edema. S1 and S2 are normal. Breath sounds are normal. Patient is awake alert and without any distress.
[2018-06-22] MEDS ORDERED: Latanoprost 2.5 ML BOTTLE LEFT EYE SCH (18:00)
== END 2018-06-22 13:00 | disposition home or self-care (01) ==
LOC: EMEROOARM 17:26 → 3BNU 17:26 → SUATTDRO 20:18 → 3BNU 20:42
PROVIDERS: ADMIT Family Medicine; ATTEND Internal Medicine

== ENCOUNTER 2018-08-23 09:46 | Observation (INO) ==
[2018-08-23] MEDS ORDERED: Aspirin 325 MG TABLET PO ONE (10:44)
[2018-08-23] MEDS ORDERED: Nitroglycerin 0.4 MG TAB.SUBL SL STA (10:45)
--- NOTE | 2018-08-23 10:47 | Emergency Department Note ---
Disposition Clinical Impression: Chest pain Qualifiers: Chest pain type: unspecified Qualified Code(s): R07.9 - Chest pain, unspecified Disposition: Admitted As Inpatient Condition: Good Time of Disposition: 14:53 General Adult HPI - General Chief complaint: ED Shortness of Breath/Dyspnea Stated complaint: sob Time Seen by Provider: 08/23/18 10:33 Source: patient Limitations: no limitations Nursing Notes Reviewed: Yes Vital Signs Reviewed: Yes - History of Present Illness HPI Narrative: Male patient presents emergency complaining of shortness of breath and chest pain started last night. He describes the pain as a tightness sensation. Not constant. Present at this time. 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 States that he does have a cough is nonproductive. No fevers. Also playing of left testicular pain. Has been diagnosed with epididymitis and has been seen by urology for this. They did switch him to ciprofloxacin which she is concerned that may be causing his shortness of breath. He also admits to a numbness sensation in his left hand that happened in the middle the night when he was getting up to go to the bathroom. This has since resolved. He states he called urology this morning concerned that this may all be related to his Cipro and they do not come to the emergency department. States that he does have a tightness at this time of left-sided chest and shortness of breath. Reports occasional pain whenever he tries to take a breath. Pain Scale: 6 - Related Data Home Medications Medication Instructions Recorded Confirmed Ergocalciferol (VITAMIN D2) 50,000 unit PO MO 11/27/16 08/23/18 [Vitamin D2] Dorzolamide/Timolol/Pf 1 drop LEFT EYE Q12H 01/22/18 08/23/18 [Dorzolamide-Timolol 2%-0.5%] Latanoprost [Xalatan] 1 drop LEFT EYE QPM 01/22/18 08/23/18 Aspirin [Adult Aspirin Regimen] 81 mg PO DAILY 06/18/18 08/23/18 Carvedilol [Coreg] 12.5 mg PO BID 08/23/18 08/23/18 Digoxin [Lanoxin] 125 mcg PO DAILY 08/23/18 08/23/18 Potassium Chloride 10 meq PO BID 08/23/18 08/23/18 Sacubitril/Valsartan 49/51 MG 0.5 tab PO BID 08/23/18 08/23/18 [Entresto 49 mg-51 mg Tablet] Tramadol HCl [Ultram] 50 mg PO TID PRN 08/23/18 08/23/18 Previous Rx's Medication Instructions Recorded Furosemide [Lasix] 20 mg PO DAILY #7 tablet 06/22/18 Allergies Allergy/AdvReac Type Severity Reaction Status Date / Time cephalexin Allergy Hives Verified 08/18/18 22:31 levofloxacin Allergy Numbness Verified 08/18/18 22:31 sulfamethoxazole Allergy frequent Verified 08/18/18 22:31 [From Bactrim] uriation/diarrhea/chest pressure trimethoprim [From Bactrim] Allergy frequent Verified 08/18/18 22:31 uriation/diarrhea/chest pressure All systems ED: reviewed and negative except as stated. Review of Systems: As Per HPI Constitutional: Denies: fever Cardiovascular: Reports: chest pain (Tightness sensation). Denies: palpitations Respiratory: Reports: cough, dyspnea Gastrointestinal: Denies: abdominal pain, nausea, vomiting, diarrhea Genitourinary: Reports: testicular pain (Left testicle consistent with current epididymitis.). Denies: urgency, dysuria, frequency, hematuria Musculoskeletal: Denies: back pain, neck pain Neurological: Reports: other (Tingling sensation in left hand in the middle the night. Not present at this time. Has just to his feet bilaterally occasionally as well.) Past Medical History - Past Medical History Attestation: Yes The following information was validated with the patient. Source: patient Medical history: Reports: cardiomyopathy, CHF, coronary artery disease, GERD, glaucoma, hypertension, valvular heart disease, other Surgical history: Reports: appendectomy Psychiatric history: Reports: no psych history - Social History Smoking Status: Former smoker Smokeless Tobacco Status: No Alcohol use: Reports: none Drug use: Reports: none Physical Exam - General Limitations: no limitations General appearance: alert, in no apparent distress - Head Head exam: atraumatic, normocephalic, normal inspection - Eye Eye exam: Present: normal appearance, PERRL, EOMI - ENT ENT exam: normal exam, normal oropharynx, mucous membranes moist - Neck Neck exam: Present: normal inspection, full ROM, trachea midline - Chest Chest inspection: Present: normal inspection, symmetric chest wall rise - Respiratory Respiratory exam: Present: normal lung sounds bilaterally. Absent: respiratory distress, accessory muscle use - Cardiovascular Cardiovascular exam: Present: regular rate, normal rhythm, normal heart sounds - Abdominal Exam Abdominal exam: Present: soft, Non-Tender. Absent: tenderness, distention, guarding, rebound, rigidity, organomegaly - Male exam: Present: other (Pain to the left inguinal area consistent with epididymitis.) - Extremities Exam Extremities exam: Present: normal inspection, full ROM, normal capillary refill. Absent: tenderness, pedal edema - Neurological Exam Neurological exam: Present: alert, oriented X3 - Psychiatric Psychiatric exam: Present: normal affect, normal mood - Skin Skin exam: Present: warm, dry, intact, normal color. Absent: rash, cyanosis, diaphoresis Course Course Narrative: Patient appears well resting in bed. I do not believe this is medication related. Does have some shortness of breath with clear lung sounds. Does have an enlarged prostate on my previous exam of him. Concern for possible PE as he has shortness of breath associated with the chest pain in this enlarged prostate it could be a nidus for cancer. We did get a d-dimer which was elevated. This was elevated from his previous d-dimer which was only 600 in April. He had a negative CTA that time. We will provide patient with aspirin as well as nitroglycerin and do a cardiac workup. I anticipate admission for this patient secondary to his cardiac history and chest pain. - Reevaluation(s) Reevaluation #1: Patient's d-dimer was elevated. We did get a CTA patient's chest. This was negative for PE. Patient did refuse nitroglycerin glycerin as a chest pain had resolved at that time. We will admit for further cardiac evaluation. Patient is agreeable with this plan. Vital Signs Temperature 97.6 F 08/23/18 10:14 Pulse Rate 65 08/23/18 10:14 Respiratory Rate 19 08/23/18 10:14 Blood Pressure 121/77 08/23/18 10:14 O2 Sat by Pulse Oximetry 98 08/23/18 10:14 Temperature 97.6 F 08/23/18 10:14 Pulse Rate 62 08/23/18 13:48 Respiratory Rate 16 08/23/18 13:48 Blood Pressure 121/59 08/23/18 13:48 O2 Sat by Pulse Oximetry 100 08/23/18 13:48 Oxygen Delivery Oxygen Delivery Room Air Medical Decision Making - Medical Records Medical records reviewed: Yes I reviewed the patient's medical records. - Lab Data Lab results reviewed: Yes I reviewed the patient's lab results. Result diagrams: 08/23/18 10:37 08/23/18 10:37 Lab Results 08/23/18 08/23/18 08/23/18 Range/Units 10:37 10:37 10:37 WBC 6.1 (4.3-11.1) K/mcL RBC 5.03 (4.19-5.50) M/mcL Hgb 15.3 (12.9-16.9) g/dL Hct 46.6 (37.5-50.1) % MCV 92.6 (83.0-100.0) fL MCH 30.4 (28.0-33.3) pg MCHC 32.8 (31.6-35.5) g/dL RDW 13.2 (11.5-14.5) % Plt Count 236 (140-400) K/mcL MPV 9.3 L (9.4-12.4) fL Immature Gran % 0.3 (0-4) % Seg Neutrophils % 61.1 % Lymphocytes % 23.3 % Monocytes % 12.0 % Eosinophils % 2.6 % Basophils % 0.7 % Neutrophils # 3.7 (1.6-8.9) K/mcL Lymphocytes # 1.4 (0.6-4.6) K/mcL Monocytes # 0.7 (0.0-1.3) K/mcL Eosinophils # 0.2 (0.0-0.6) K/mcL Basophils # 0.0 (0.0-0.2) K/mcL PT 12.7 H (9.4-12.1) Seconds INR 1.1 APTT 34.8 (26.0-36.0) Seconds D-Dimer 1379 H (0-500) ng/mLFEU Sodium 134 L (136-145) mEq/L Potassium 4.6 (3.5-5.1) mEq/L Chloride 103 (98-107) mEq/L Carbon Dioxide 24 (23-29) mEq/L BUN 22 (8-23) mg/dL Creatinine 1.68 H (0.70-1.30) mg/dL Est GFR ( Amer) 49 L (> 60) Est GFR (Non-Af Amer) 40 L (> 60) BUN/Creatinine Ratio 13 (6-26) Glucose 121 H (70-105) mg/dL Calculated Osmolality 283 (280-300) Lactic Acid (0.5-2.2) mmol/L Calcium 9.1 (8.6-10.3) mg/dL Troponin I < 0.03 (< 0.04) ng/mL B-Natriuretic Peptide (Less than 100) pg/mL 08/23/18 08/23/18 Range/Units 10:37 10:51 WBC (4.3-11.1) K/mcL RBC (4.19-5.50) M/mcL Hgb (12.9-16.9) g/dL Hct (37.5-50.1) % MCV (83.0-100.0) fL MCH (28.0-33.3) pg MCHC (31.6-35.5) g/dL RDW (11.5-14.5) % Plt Count (140-400) K/mcL MPV (9.4-12.4) fL Immature Gran % (0-4) % Seg Neutrophils % % Lymphocytes % % Monocytes % % Eosinophils % % Basophils % % Neutrophils # (1.6-8.9) K/mcL Lymphocytes # (0.6-4.6) K/mcL Monocytes # (0.0-1.3) K/mcL Eosinophils # (0.0-0.6) K/mcL Basophils # (0.0-0.2) K/mcL PT (9.4-12.1) Seconds INR APTT (26.0-36.0) Seconds D-Dimer (0-500) ng/mLFEU Sodium (136-145) mEq/L Potassium (3.5-5.1) mEq/L Chloride (98-107) mEq/L Carbon Dioxide (23-29) mEq/L BUN (8-23) mg/dL Creatinine (0.70-1.30) mg/dL Est GFR ( Amer) (> 60) Est GFR (Non-Af Amer) (> 60) BUN/Creatinine Ratio (6-26) Glucose (70-105) mg/dL Calculated Osmolality (280-300) Lactic Acid 0.9 (0.5-2.2) mmol/L Calcium (8.6-10.3) mg/dL Troponin I (< 0.04) ng/mL B-Natriuretic Peptide 340 H (Less than 100) pg/mL - Radiology Data Radiology results reviewed: Yes I reviewed the patient's radiology results. Chest X-Ray 08/23/18 10:44 IMPRESSION: No acute cardiopulmonary process identified. D/ / Efrain Muñoz MD / Efrain Muñoz MD Interpreting Provider: Efrain Muñoz MD - EKG Data EKG #1 EKG attestation: Yes I reviewed and interpreted this EKG. EKG results narrative: Atrially paced rhythm at a rate of 70. LA interval is 154. QRS duration is 134. QT is 389. QTC is 420. No signs of acute ischemia. No significant change from previous EKG dated 08/18/2018. Attestation Statement - Attestation Attestation: I have seen this patient with the resident physician, I have personally evaluated this patient. I had reviewed the chart and document dictation by the resident physician and aM in agreement with the information documented by the resident physician. Please see documentation by the resident physician for c omplete chart including past medical history, family medical history, review of systems, current history and physical and laboratory and imaging studies. I was present for all procedures, provided direct supervision for all procedures, was present for the entirety of all procedures and provided direct guidance during the procedures. Please see documentation by the resident physician for any procedures performed. I have reviewed all interpretations of EKGs, and reviewed all EKGs performed on patient's as well. I have also reviewed reports of imaging as provided by radiology. Heart Score - Score History: Moderately Suspicious EKG: Non Specific repolarisation Disturbance Age: Greater than 65 Risk Factors: Equal/Greater than 3 risk factor or history of atherosclerotic disease Troponin: Less than normal limit HEART Score Total: 6
[2018-08-23 10:54] LABS: Basophils % 0.7 %; Eosinophils # 0.2 K/mcL (0.0-0.6); Eosinophils % 2.6 %; Hematocrit 46.6 % (37.5-50.1); Hemoglobin 15.3 g/dL (12.9-16.9); Immature Granulocytes % 0.3 % (0-4); Lymphocytes # 1.4 K/mcL (0.6-4.6); Lymphocytes % 23.3 %; Mean Corpuscular HGB Conc 32.8 g/dL (31.6-35.5); Mean Corpuscular Hemoglobin 30.4 pg (28.0-33.3); Mean Corpuscular Volume 92.6 fL (83.0-100.0); Mean Platelet Volume 9.3 fL (9.4-12.4); Monocytes # 0.7 K/mcL (0.0-1.3); Neutrophils # 3.7 K/mcL (1.6-8.9); Platelet Count 236 K/mcL (140-400); Red Blood Count 5.03 M/mcL (4.19-5.50); Red Cell Distribution Width 13.2 % (11.5-14.5); Segmented Neutrophils % 61.1 %; White Blood Count 6.1 K/mcL (4.3-11.1)
[2018-08-23 11:02] LABS: INR 1.1; Prothrombin Time 12.7 Seconds (9.4-12.1)
[2018-08-23 11:05] LABS: Activated Partial Thrombo Time 34.8 Seconds (26.0-36.0)
[2018-08-23 11:15] LABS: BUN/Creatinine Ratio 13 (6-26); Blood Urea Nitrogen 22 mg/dL (8-23); Calcium 9.1 mg/dL (8.6-10.3); Carbon Dioxide 24 mEq/L (23-29); Chloride 103 mEq/L (98-107); Glucose 121 mg/dL (70-105); Osmolality,Calculated 283 (280-300); Potassium 4.6 mEq/L (3.5-5.1); Sodium 134 mEq/L (136-145); Troponin I < 0.03 ng/mL (< 0.04); eGFR For African Americans 49 (> 60); eGFR For Non-African Americans 40 (> 60)
[2018-08-23] MEDS ORDERED: Isovue-370 500 ML BOTTLE IVP ONE (11:22)
--- NOTE | 2018-08-23 15:30 | Electrocardiograph Report ---
[address] [address] Test Date: 2018-08-23 Pat Name: Mookie Russo Department: [id number] Room: 3B24 Gender: M Bell Ringer: : 1940 Requested By: Karon Deleon Order Number: [id number] Reading MD: Kay Estrada Measurements Intervals [place] Rate: 70 P: 161 NV: 154 QRS: -18 QRSD: 134 T: 161 QT: 389 QTc: 420 Interpretive Statements Atrial-sensed ventricular-paced complexes No further analysis attempted due to paced rhythm Electronically Signed On 08-23-2018 15:28:19 EDT by Kay Estrada
[2018-08-23] MEDS ORDERED: Naloxone 0.4 MG/ML INJ IVP PRN (15:38)
[2018-08-23] MEDS ORDERED: traMADol 50 MG TABLET PO PRN (15:39)
--- NOTE | 2018-08-23 16:54 | Internal Med History&Physical ---
Date of Encounter: 08/23/18 Time of Encounter: 16:30 Internal Medicine - H&P: HPI Chief complaint: Chest pain and shortness of breath this am History of present illness: Mr. Russo is a 77 year old male with pmh of chronic systolic CHF, CAD, hypertension, valvular disease presenting with complaints of shortness of breath and chest pain since this morning. Patient was recently her last week sunday for scrotal pain for which he was diagnosed with epididymitis and has been getting ciprofloxacin which he thinks is causing the shortness of breath. He says he woke up with pressure on the left side of his chest associated with left arm numbness and tingling in his fingers. He also had had severe shortness of breath. He called the urology office who advised him to come to the ER. He also complains of persistent scrotal discomfort. He denies any other acute symptoms such as nausea or vomiting. In the ER, he had a CT chest done showing no PE. He was given aspirin and he is being admitted for further management Past Med Surg Social Fam HX - Past Medical History Medical history: cardiomyopathy, CHF, coronary artery disease, GERD, glaucoma, hypertension, valvular heart disease, other Additional medical history: Pacemaker/AICD, "prostate problems" Psychiatric history: no psych history - Past Surgical History Surgical History: appendectomy Additional surgical history: Lasik left eye, prostate needle biopsy - Social History Smoking Status: Former smoker Smokeless Tobacco Status: No Alcohol use: none Drug use: none - Family History Mother Living Status: Hx Family Cardiac Disorders: Yes Internal Medicine - H&P: Meds Ergocalciferol (VITAMIN D2) [Vitamin D2] 50,000 unit PO MO 11/27/16 [History] Dorzolamide/Timolol/Pf [Dorzolamide-Timolol 2%-0.5%] 1 drop LEFT EYE Q12H 01/22/18 [History] Latanoprost [Xalatan] 1 drop LEFT EYE QPM 01/22/18 [History] Aspirin [Adult Aspirin Regimen] 81 mg PO DAILY 06/18/18 [History] Furosemide [Lasix] 20 mg PO DAILY #7 tablet 06/22/18 [Rx] Carvedilol [Coreg] 12.5 mg PO BID 08/23/18 [History] Digoxin [Lanoxin] 125 mcg PO DAILY 08/23/18 [History] Potassium Chloride 10 meq PO BID 08/23/18 [History] Sacubitril/Valsartan 49/51 MG [Entresto 49 mg-51 mg Tablet] 0.5 tab PO BID 08/23/18 [History] Tramadol HCl [Ultram] 50 mg PO TID PRN 08/23/18 [History] Allergy/AdvReac Type Severity Reaction Status Date / Time cephalexin Allergy Hives Verified 08/18/18 22:31 levofloxacin Allergy Numbness Verified 08/18/18 22:31 sulfamethoxazole Allergy frequent Verified 08/18/18 22:31 [From Bactrim] uriation/diarrhea/chest pressure trimethoprim [From Bactrim] Allergy frequent Verified 08/18/18 22:31 uriation/diarrhea/chest pressure All Systems PM: A 10-system review of systems was performed and is negative for pertinent findings except as documented above in the HPI. - Constitutional Constitutional: no chills, no fever(s), no night sweats - EENT Eyes: no change in vision, no discharge, no pain, no photophobia Ears: no ear discharge, no ear pain, no tinnitus Nose, mouth and throat: no dysphagia, no nasal discharge, no neck pain, no sore throat - Cardiovascular Cardiovascular ROS IM: chest pain, dyspnea, dyspnea on exertion, no diaphoresis, no lightheadedness, no palpitations, no syncope - Respiratory Respiratory: dyspnea on exertion, no cough, no dyspnea, no wheezing, no excessive phlegm production - Gastrointestinal Gastrointestinal: no abdominal pain, no diarrhea, no hematemesis, no hematochezia, no melena, no nausea, no vomiting - Musculoskeletal Musculoskeletal ROS IM: no numbness, no tingling - Integumentary Integumentary IM: no rash, no unusual bruising - Neurological Neurological ROS: no confusion, no convulsions, no focal weakness, no numbness, no tingling, no tremor(s) - Hematologic/Lymphatic Hematologic/Lymphatic: no easy bruising - Constitutional Vitals: Temp Pulse Resp BP Pulse Ox 79.4 F L 70 16 121/63 98 08/23/18 16:48 08/23/18 16:48 08/23/18 16:48 08/23/18 16:48 08/23/18 16:48 Exam: NAD - Head Head exam: Present: atraumatic, normocephalic - Eye Eye exam: Present: PERRL, conjuntiva pink, sclera anicteric Pupils: Present: PERRL - Neck Neck exam general surgery: Present: supple, trachea midline. Absent: lymphadenopathy - Respiratory Respiratory exam: Present: CTAB. Absent: accessory muscle use, rales, rhonchi, wheezes - Cardiovascular Cardiovascular exam: Present: RRR, +S1, +S2. Absent: diastolic murmur, gallop, rubs, systolic murmur - GI/Abdominal GI/Abdominal exam: Present: normal bowel sounds, soft, no peritoneal signs. Absent: distended, tenderness - Extremities Exam Extremities exam: Present: warm, radial pulses palpable and symmetrical. Absent: calf tenderness, cyanotic, pedal edema - Neurological Exam Neurological exam: Present: CN II-XII intact, oriented X3, no focal deficits. Absent: pronater drift, facial droop, speech deficit - Skin Skin exam: Present: dry, intact Internal Med - H&P Results - Labs CBC & Chem 7: 08/23/18 10:37 08/23/18 10:37 Labs: Short CBC 08/23/18 Range/Units 10:37 WBC 6.1 (4.3-11.1) K/mcL Hgb 15.3 (12.9-16.9) g/dL Hct 46.6 (37.5-50.1) % Plt Count 236 (140-400) K/mcL Neutrophils # 3.7 (1.6-8.9) K/mcL BMP 08/23/18 10:37 Sodium 134 L Potassium 4.6 Chloride 103 Carbon Dioxide 24 BUN 22 Creatinine 1.68 H Glucose 121 H Calcium 9.1 Cardiac Enzymes 08/23/18 Range/Units 10:37 Troponin I < 0.03 (< 0.04) ng/mL - Impressions ITS Impressions Chest X-Ray 08/23/18 10:44 IMPRESSION: No acute cardiopulmonary process identified. D/ / Efrain Muñoz MD / Efrain Muñoz MD Interpreting Provider: Efrain Muñoz MD Chest CTA 08/23/18 11:22 IMPRESSION: 1. No pulmonary embolism. No acute abnormality in the chest. 2. Stable 2 mm right upper lobe nodule, which is most likely benign given the small size. Consider a follow-up chest CT in 12 months if the patient is high risk, as outlined below. 3. Stable marked hypertrophy of the left ventricle. RECOMMENDATIONS: Fleischner Society guidelines for follow-up and management of incidentally detected pulmonary nodules: Single Solid Nodule: Nodule size less than 6 mm In a low-risk patient, no routine follow-up. In a high-risk patient, optional CT at 12 months. - Low risk patients include individuals with minimal or absent history of smoking and other known risk factors. - High risk patients include individuals with a history or smoking or known risk factors. Radiology 2017 http://pubs.rsna.org/doi/full/10.1148/radiol.7783469828 D/ / 08/23/2018 13:00:50 Francisco Ahumada MD / jose antonio Interpreting Provider: Francisco Ahumada MD - Assessment and Plan (1) Chest pain Current Visit: Yes Status: Acute Assessment and plan: Pt came in with chest pain and shortness of breath of 1 day duration with left arm numbnes Initial troponins negative. Trend troponins. Obtain stress test in am Continue aspirin Qualifiers: Qualified Code(s): R07.9 - Chest pain, unspecified (2) CHF (congestive heart failure) Current Visit: Yes Status: Acute Assessment and plan: Pt has chronic systolic CHF with no acute exacerbation. continue home entresto, digoxin and lasix Qualifiers: Heart failure type: unspecified Heart failure chronicity: unspecified Qualified Code(s): I50.9 - Heart failure, unspecified (3) Epididymitis Current Visit: Yes Status: Acute Assessment and plan: Was on ciprofloxacin at home and still complains of testicular discomfort. Urol ogy recs appreciated Will initiate doxycycline therapy. Pt has multiple allergies and complains the ciprofloxacin cause dionne to be short of breath/ he also appears to be allergic to levaquin. Urology recs appreciated (4) CKD (chronic kidney disease) stage 3, GFR 30-59 ml/min Current Visit: Yes Status: Chronic Assessment and plan: No acute worsening. Monitor creatinine (5) DVT prophylaxis Current Visit: Yes Status: Acute Assessment and plan: Heparin sc - Time Spent With Patient Total time spent is greater than 50% in coordination of care (as documented) at patient's floor/unit and/or counseling patient:
[2018-08-23] MEDS: Dorzolamide/Timolol OPTH 10 ML BOTTLE LEFT EYE SCH (17:59)
[2018-08-23] MEDS: *HR* Heparin 5,000 UNIT/ML VIAL SQ SCH (17:59)
[2018-08-23] MEDS ORDERED: Latanoprost 2.5 ML BOTTLE LEFT EYE SCH (18:00)
[2018-08-23] MEDS: Sacubitril/Valsartan 24/26 MG 1 TABLET PO SCH (21:00)
[2018-08-23] MEDS: Doxycycline 100 MG CAPSULE PO SCH (21:00)
[2018-08-23] MEDS ORDERED: Sacubitril/Valsartan 49/51 MG 1 TABLET PO SCH (21:00)
[2018-08-24 01:47] LABS: Basophils % 0.6 %; Eosinophils # 0.2 K/mcL (0.0-0.6); Hematocrit 43.6 % (37.5-50.1); Hemoglobin 14.1 g/dL (12.9-16.9); Immature Granulocytes % 0.4 % (0-4); Lymphocytes % 28.1 %; Mean Corpuscular HGB Conc 32.3 g/dL (31.6-35.5); Mean Corpuscular Hemoglobin 30.2 pg (28.0-33.3); Mean Corpuscular Volume 93.4 fL (83.0-100.0); Mean Platelet Volume 9.6 fL (9.4-12.4); Monocytes # 0.8 K/mcL (0.0-1.3); Monocytes % 11.1 %; Platelet Count 240 K/mcL (140-400); Red Blood Count 4.67 M/mcL (4.19-5.50); Red Cell Distribution Width 13.3 % (11.5-14.5); Segmented Neutrophils % 56.8 %; White Blood Count 7.1 K/mcL (4.3-11.1)
[2018-08-24 02:34] LABS: Calcium 8.7 mg/dL (8.6-10.3); Phosphorous 3.3 mg/dL (2.7-4.5)
[2018-08-24] MEDS: Dorzolamide/Timolol OPTH 10 ML BOTTLE LEFT EYE SCH (04:21)
[2018-08-24] MEDS: *HR* Heparin 5,000 UNIT/ML VIAL SQ SCH (05:29)
[2018-08-24] MEDS ORDERED: Dorzolamide/Timolol OPTH 10 ML BOTTLE LEFT EYE SCH (06:00)
[2018-08-24] MEDS ORDERED: Regadenoson 0.4 MG/5 ML SYRINGE IVP ONE (07:16)
[2018-08-24] MEDS ORDERED: *HR* Digoxin 0.125 MG TABLET PO SCH (09:00)
[2018-08-24] MEDS ORDERED: Aspirin Enteric Coated 81 MG Tablet PO SCH (09:00)
[2018-08-24] MEDS ORDERED: Furosemide 20 MG TABLET PO SCH (09:00)
--- NOTE | 2018-08-24 09:17 | Urology Progress Note ---
Date of Encounter: 08/24/18 Time of Encounter: 09:17 - Assessment and Plan (1) Epididymitis Current Visit: Yes Status: Acute Assessment and plan: Patient seen earlier this week in our office by his established urologist Dr. Waldron for epididymitis. Patient is currently off the floor for a stress test. Plan: We will attempt to stop by and see the patient another day or patient can follow-up as outpatient if discharged later today. Objective Initial Vital Signs Temp Pulse Resp BP Pulse Ox 97.6 F 65 19 121/77 98 08/23/18 10:14 08/23/18 10:14 08/23/18 10:14 08/23/18 10:14 08/23/18 10:14 - Labs 08/24/18 00:29 08/24/18 00:29 Diabetes panel 08/23/18 08/24/18 Range/Units 10:37 00:29 Sodium 134 L 134 L (136-145) mEq/L Potassium 4.6 4.0 (3.5-5.1) mEq/L Chloride 103 102 (98-107) mEq/L Carbon Dioxide 24 23 (23-29) mEq/L BUN 22 20 (8-23) mg/dL Creatinine 1.68 H 1.53 H (0.70-1.30) mg/dL Glucose 121 H 90 (70-105) mg/dL Calcium 9.1 8.7 (8.6-10.3) mg/dL Calcium panel 08/23/18 08/24/18 Range/Units 10:37 00:29 Calcium 9.1 8.7 (8.6-10.3) mg/dL Phosphorus 3.3 (2.7-4.5) mg/dL Pituitary panel 08/23/18 08/24/18 Range/Units 10:37 00:29 Sodium 134 L 134 L (136-145) mEq/L Potassium 4.6 4.0 (3.5-5.1) mEq/L Chloride 103 102 (98-107) mEq/L Carbon Dioxide 24 23 (23-29) mEq/L BUN 22 20 (8-23) mg/dL Creatinine 1.68 H 1.53 H (0.70-1.30) mg/dL Glucose 121 H 90 (70-105) mg/dL Calcium 9.1 8.7 (8.6-10.3) mg/dL Adrenal panel 08/23/18 08/24/18 Range/Units 10:37 00:29 Sodium 134 L 134 L (136-145) mEq/L Potassium 4.6 4.0 (3.5-5.1) mEq/L Chloride 103 102 (98-107) mEq/L Carbon Dioxide 24 23 (23-29) mEq/L BUN 22 20 (8-23) mg/dL Creatinine 1.68 H 1.53 H (0.70-1.30) mg/dL Glucose 121 H 90 (70-105) mg/dL Calcium 9.1 8.7 (8.6-10.3) mg/dL Consult Discharge Plan - Plan Referrals: Leon Ayon MD [Primary Care Provider] -
[2018-08-24] MEDS: Sacubitril/Valsartan 24/26 MG 1 TABLET PO SCH (10:33)
[2018-08-24] MEDS: Doxycycline 100 MG CAPSULE PO SCH (10:33)
[2018-08-24 15:09] VITALS: BP 107/62
--- NOTE | 2018-08-24 15:16 | Discharge Summary ---
Orders not resulted at time of discharge: Pending orders 08/23/18 06:50 NM kurt perf SPECT multi [NM] Routine Date of Encounter: 08/24/18 Time of Encounter: 08:00 - Discharge Diagnosis (1) Chest pain Priority: Primary Status: Acute Assessment and Plan: 77 year old male with pmh of chronic systolic CHF, CAD, hypertension, valvular disease presenting with complaints of shortness of breath and chest pain since this morning. Patient was recently her last week sunday for scrotal pain for which he was diagnosed with epididymitis and has been getting ciprofloxacin which he thinks is causing the shortness of breath. He says he woke up with pressure on the left side of his chest associated with left arm numbness and tingling in his fingers. He also had had severe shortness of breath. He called the urology office who advised him to come to the ER. He also complains of persistent scrotal discomfort. He denies any other acute symptoms such as nausea or vomiting. HE was assessed with chest pain r/o acute coronary syndrome. Het came in with chest pain and shortness of breath of 1 day duration with left arm numbness. Troponins were negative. He had a stress test completed showing no perfusion deficits consistent with acute ischemia. 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 Discussed stress test results with Dr Finley, there would be no acute indication for a cardiac cath based on stress test results. He has an appointment with cardiology on August 29 and will follow up with them as an outpatient. He will complete a course of doxycycline for his epididymitis and follow up with urology outpatient. Qualifiers: Qualified Code(s): R07.9 - Chest pain, unspecified (2) CHF (congestive heart failure) Priority: Primary Status: Acute Qualifiers: Heart failure type: unspecified Heart failure chronicity: unspecified Qualified Code(s): I50.9 - Heart failure, unspecified (3) Epididymitis Priority: Primary Status: Acute (4) CKD (chronic kidney disease) stage 3, GFR 30-59 ml/min Priority: Primary Status: Chronic (5) DVT prophylaxis Priority: Primary Status: Acute Hospital course: Mr. Russo is a 77 year old male - Time Spent with Patient Total time spent providing and/or coordinating discharge services: - Discharge Medications Prescriptions: New Doxycycline 100 mg PO BID 7 Days #14 capsule Continued Ergocalciferol (VITAMIN D2) [Vitamin D2] 50,000 unit PO MO Latanoprost [Xalatan] 1 drop LEFT EYE QPM Dorzolamide/Timolol/Pf [Dorzolamide-Timolol 2%-0.5%] 1 drop LEFT EYE Q12H Aspirin [Adult Aspirin Regimen] 81 mg PO DAILY Furosemide [Lasix] 20 mg PO DAILY #7 tablet Tramadol HCl [Ultram] 50 mg PO TID PRN PRN Reason: Pain Digoxin [Lanoxin] 125 mcg PO DAILY Potassium Chloride 10 meq PO BID Sacubitril/Valsartan 49/51 MG [Entresto 49 mg-51 mg Tablet] 0.5 tab PO BID Carvedilol [Coreg] 12.5 mg PO BID Home Medications: Ergocalciferol (VITAMIN D2) [Vitamin D2] 50,000 unit PO MO 11/27/16 [History] Dorzolamide/Timolol/Pf [Dorzolamide-Timolol 2%-0.5%] 1 drop LEFT EYE Q12H 01/22/18 [History] Latanoprost [Xalatan] 1 drop LEFT EYE QPM 01/22/18 [History] Aspirin [Adult Aspirin Regimen] 81 mg PO DAILY 06/18/18 [History] Furosemide [Lasix] 20 mg PO DAILY #7 tablet 06/22/18 [Rx] Carvedilol [Coreg] 12.5 mg PO BID 08/23/18 [History] Digoxin [Lanoxin] 125 mcg PO DAILY 08/23/18 [History] Potassium Chloride 10 meq PO BID 08/23/18 [History] Sacubitril/Valsartan 49/51 MG [Entresto 49 mg-51 mg Tablet] 0.5 tab PO BID 08/23/18 [History] Tramadol HCl [Ultram] 50 mg PO TID PRN 08/23/18 [History] Doxycycline 100 mg PO BID 7 Days #14 capsule 08/24/18 [Rx] Allergies/Adverse Reactions: Allergy/AdvReac Type Severity Reaction Status Date / Time cephalexin Allergy Hives Verified 08/23/18 20:58 levofloxacin Allergy Numbness Verified 08/23/18 20:58 sulfamethoxazole AdvReac frequent Verified 08/23/18 20:58 [From Bactrim] uriation/diarrhea/chest pressure trimethoprim [From Bactrim] AdvReac frequent Verified 08/23/18 20:58 uriation/diarrhea/chest pressure Date of admission: 08/23/18 14:41 Primary care physician: Leon Ayon MD Consults: 08/23/18 16:44 Consult to Urology [CONS] Routine Consulting Provider: Urology Sonya Reason for Consult: patient complains of left sided testucular swelling, rec ently treated for epididymitis Call Completed: No - Constitutional Vitals: Temp Pulse Resp BP Pulse Ox 97.9 F 62 15 107/62 100 08/24/18 15:06 08/24/18 15:06 08/24/18 15:06 08/24/18 15:06 08/24/18 15:06 Exam: NAD - Head Head exam: Present: atraumatic, normocephalic - Eye Eye exam: Present: PERRL, conjuntiva pink, sclera anicteric Pupils: Present: PERRL - Neck Neck exam general surgery: Present: supple, trachea midline. Absent: lymphadenopathy - Respiratory Respiratory exam: Present: CTAB. Absent: accessory muscle use, rales, rhonchi, wheezes - Cardiovascular Cardiovascular exam: Present: RRR, +S1, +S2. Absent: diastolic murmur, gallop, rubs, systolic murmur - GI/Abdominal GI/Abdominal exam: Present: normal bowel sounds, soft, no peritoneal signs. Absent: distended, tenderness - Extremities Exam Extremities exam: Present: warm, radial pulses palpable and symmetrical. Absent: calf tenderness, cyanotic, pedal edema - Neurological Exam Neurological exam: Present: CN II-XII intact, oriented X3, no focal deficits. Absent: pronater drift, facial droop, speech deficit - Skin Skin exam: Present: dry, intact - Patient Status Disposition: Home, Self-Care Condition: Good - Discharge Instructions Instructions: Heart Failure (DC), Chest Pain (DC), Syncope (DC), Anxiety (DC), Lightheadedness, Office Administrator (GEN) Follow Up With: Leon Ayon MD [Primary Care Provider] - (An appointment has been requested. The office will contact you at home to schedule an appointment. Thank you. )
== END 2018-08-24 16:10 | disposition home or self-care (01) ==
LOC: EMEROOARM 09:46 → 3BNU 09:46
PROVIDERS: ADMIT Internal Medicine; ATTEND Internal Medicine

== ENCOUNTER 2020-08-15 21:13 | Observation (INO) ==
[2020-08-15] MEDS: Nitroglycerin 0.4 MG TAB.SUBL SL PRN ×2 (21:46→22:54)
[2020-08-15 21:49] LABS: Eosinophils % 1.2 %
[2020-08-15 21:51] LABS: Basophils # 0.1 K/mcL (0.0-0.2); Basophils % 0.7 %; Eosinophils # 0.1 K/mcL (0.0-0.6); Hematocrit 45.2 % (37.5-50.1); Hemoglobin 14.8 g/dL (12.9-16.9); Immature Granulocytes % 0.1 % (0-4); Lymphocytes # 1.9 K/mcL (0.6-4.6); Lymphocytes % 28.3 %; Mean Corpuscular HGB Conc 32.7 g/dL (31.6-35.5); Mean Corpuscular Hemoglobin 31.3 pg (28.0-33.3); Mean Corpuscular Volume 95.6 fL (83.0-100.0); Mean Platelet Volume 10.4 fL (9.4-12.4); Monocytes # 0.6 K/mcL (0.0-1.3); Monocytes % 8.1 %; Neutrophils # 4.2 K/mcL (1.6-8.9); Platelet Count 125 K/mcL (140-400); Red Blood Count 4.73 M/mcL (4.19-5.50); Red Cell Distribution Width 13.9 % (11.5-14.5); Segmented Neutrophils % 61.6 %; White Blood Count 6.8 K/mcL (4.3-11.1)
[2020-08-15 22:13] LABS: BUN/Creatinine Ratio 13 (6-26); Blood Urea Nitrogen 27 mg/dL (8-23); Calcium 8.9 mg/dL (8.6-10.3); Carbon Dioxide 20 mEq/L (23-29); Chloride 103 mEq/L (98-107); Glucose 133 mg/dL (70-105); Osmolality,Calculated 287 (280-300); Sodium 135 mEq/L (136-145); eGFR For African Americans 38 (> 60); eGFR For Non-African Americans 31 (> 60)
[2020-08-15 22:14] LABS: Troponin I < 0.03 ng/mL (< 0.04)
[2020-08-15] MEDS ORDERED: Azithromycin 500 MG in D5% in Water 250 ML IVPB ONE (22:29)
[2020-08-15] MEDS ORDERED: cefTRIAXone 1,000 MG in Water for inj. (sterile) 10 ML IVP ONE (22:29)
[2020-08-15] MEDS ORDERED: Furosemide 40 MG/4 ML VIAL IVP ONE (23:09)
[2020-08-15] MEDS ORDERED: Acetaminophen 325 MG TABLET PO PRN (23:59)
[2020-08-15] MEDS ORDERED: Naloxone 0.4 MG/ML INJ IVP PRN (23:59)
[2020-08-15] MEDS ORDERED: Ondansetron 4 MG/2 ML VIAL IVP PRN (23:59)
[2020-08-16 04:40] LABS: Basophils % 0.7 %; Eosinophils # 0.1 K/mcL (0.0-0.6); Eosinophils % 0.9 %; Hematocrit 44.6 % (37.5-50.1); Hemoglobin 14.8 g/dL (12.9-16.9); Immature Granulocytes % 0.2 % (0-4); Lymphocytes # 1.9 K/mcL (0.6-4.6); Lymphocytes % 33.8 %; Mean Corpuscular HGB Conc 33.2 g/dL (31.6-35.5); Mean Corpuscular Hemoglobin 31.7 pg (28.0-33.3); Mean Corpuscular Volume 95.5 fL (83.0-100.0); Monocytes # 0.5 K/mcL (0.0-1.3); Monocytes % 9.3 %; Neutrophils # 3.1 K/mcL (1.6-8.9); Platelet Count 125 K/mcL (140-400); Red Blood Count 4.67 M/mcL (4.19-5.50); Segmented Neutrophils % 55.1 %; White Blood Count 5.6 K/mcL (4.3-11.1)
[2020-08-16 05:01] LABS: BUN/Creatinine Ratio 14 (6-26); Blood Urea Nitrogen 27 mg/dL (8-23); Calcium 8.9 mg/dL (8.6-10.3); Carbon Dioxide 23 mEq/L (23-29); Chloride 101 mEq/L (98-107); Chol/HDL Ratio 3.2 (0-4.9); Cholesterol 104 mg/dL (< 200); Glucose 89 mg/dL (70-105); HDL Cholesterol 33 mg/dL (40-59); LDL Cholesterol,Calculated 57 mg/dL (< 100); Magnesium 2.1 mg/dL (1.6-2.6); Osmolality,Calculated 287 (280-300); Potassium 4.2 mEq/L (3.5-5.1); Sodium 136 mEq/L (136-145); Triglycerides 68 mg/dL (< 150); eGFR For African Americans 40 (> 60); eGFR For Non-African Americans 33 (> 60)
[2020-08-16 05:02] LABS: Troponin I < 0.03 ng/mL (< 0.04)
[2020-08-16 06:22] LABS: Estimated Average Glucose 131 mg/dl; Hemoglobin A1C 6.2 %
[2020-08-16] MEDS: *HR* Enoxaparin 40 MG/0.4 ML SYRINGE SQ SCH (08:18)
[2020-08-16] MEDS: Aspirin 81 MG TAB.CHEW PO SCH (08:18)
[2020-08-16] MEDS ORDERED: Furosemide 40 MG/4 ML VIAL IVP SCH (09:00)
[2020-08-16] MEDS ORDERED: Nitroglycerin 0.4 MG TAB.SUBL SL PRN (16:41)
[2020-08-16] MEDS ORDERED: PrednisoLONE Acetate 1% Opth 5 ML BOTTLE LEFT EYE SCH (16:45)
[2020-08-16] MEDS: carvediloL 6.25 MG TABLET PO SCH (19:09)
[2020-08-16] MEDS: Sacubitril/Valsartan 24/26 MG 1 TABLET PO SCH (21:19)
[2020-08-16] MEDS: Cyclopentolate 2 ML BOTTLE LEFT EYE SCH (21:19)
[2020-08-16] MEDS ORDERED: Ipratropium/Albuterol Neb 3 ML IH PRN (22:15)
[2020-08-17 03:44] LABS: Calcium 8.6 mg/dL (8.6-10.3)
[2020-08-17] MEDS: *HR* Enoxaparin 40 MG/0.4 ML SYRINGE SQ SCH (05:25)
[2020-08-17 07:52] VITALS: BP 110/68
[2020-08-17] MEDS: Sacubitril/Valsartan 24/26 MG 1 TABLET PO SCH (08:02)
[2020-08-17] MEDS: Cyclopentolate 2 ML BOTTLE LEFT EYE SCH (08:02)
[2020-08-17] MEDS: Aspirin 81 MG TAB.CHEW PO SCH (08:02)
[2020-08-17] MEDS: carvediloL 6.25 MG TABLET PO SCH (08:02)
[2020-08-17] MEDS ORDERED: *HR* Digoxin 0.125 MG TABLET PO SCH (09:00)
[2020-08-17] MEDS ORDERED: Isosorbide MONOnitrate (24 HR) 30 MG TAB.ER.24H PO SCH (09:00)
== END 2020-08-17 12:34 | disposition home or self-care (01) ==
LOC: 2ANU 21:13 → EMEROOARM 21:13 → SUATTDRO 23:19 → 2ANU 08-16 00:55
PROVIDERS: ADMIT Internal Medicine; ATTEND Internal Medicine